=== PATIENT | female | born 1960 | race Caucasian/White ===

== ENCOUNTER 2019-11-09 14:12 | Emergency (ER) | payer OTHER, SELFPAY ==
--- NOTE | ~2019-11-09 | XR_ITS ---
EXAMINATION: XR chest 2V EXAM DATE: 11/09/2019 15:18 INDICATION: Epigastric chest pain. TECHNIQUE: Frontal and lateral projections of the chest obtained and reviewed. Comparison is made to prior examination from 11/05/2017. FINDINGS: The lungs are clear. There are no pleural effusions. The cardiomediastinal silhouette is within normal limits. There is no pneumothorax suspected. The bones and soft tissues are unremarkab le. There is no significant interval change. There are cholecystectomy clips. IMPRESSION: No acute cardiopulmonary findings. Reviewed, dictated and finalized at location A.
[2019-11-09 14:25] VITALS: BP 149/91; PULSE 69; RESP 16; TEMP 36.9; O2SAT 97
--- NOTE | 2019-11-09 14:25 | ECG_ITS ---
Measurements Intervals [place] Rate: 70 P: 56 SD: 123 QRS: 55 QRSD: 84 T: 28 QT: 377 QTc: 409 Interpretive Statements SINUS RHYTHM POSSIBLE LEFT ATRIAL ENLARGEMENT BASELINE ARTIFACT- I, II BORDERLINE ECG Electronically Signed On 11-10-2019 14:10:49 CDT by Elder Ayala D.O.
--- NOTE | 2019-11-09 14:58 | ED.CHESTPAIN ---
HPI - Chest Pain General Chief Complaint: Chest Pain Stated Complaint: heartburn Time Seen by Provider: 11/09/19 14:43 History of Present Illness HPI narrative: Patient is a 59-year-old female who presents ER with burning chest pain. Ongoing persistently for 48 hours. Has been taking Rolaids without relief of symptoms. She takes 40 mg of omeprazole daily for the last 5 years. She reports she has been more stressed recently due to COVID-19 but no other changes in medications or diet. Cannot describe any aggravating or alleviating factors. She has no exertional symptoms. No nausea/vomiting/dizziness/diaphoresis. No known history of cardiac disease. Patient reports she has not had an EGD in a couple years and missed her most recent scheduled follow-up. No radiation into her back or shoulders or neck. Related Data Home Medications Medication Instructions Recorded Confirmed Singulair 07/18/19 Zyrtec 07/18/19 fluticasone furoate-vilanterol INHALATION 07/18/19 [Breo Ellipta] pantoprazole 07/18/19 Allergies Allergy/AdvReac Type Severity Reaction Status Date / Time Penicillins Allergy Severe throat Verified 11/05/17 19:04 cephalexin Allergy Intermediate Swelling Verified 07/18/19 11:57 of Lip/Tongue/Throat codeine Allergy Unknown Difficulty Verified 07/18/19 11:57 Breathing levofloxacin Allergy Unknown Difficulty Verified 07/18/19 11:57 Breathing morphine Allergy Unknown Difficulty Verified 07/18/19 11:57 Breathing budesonide [From Symbicort] Allergy Difficulty Verified 07/18/19 11:57 Breathing formoterol [From Symbicort] Allergy Difficulty Verified 07/18/19 11:57 Breathing Review of Systems Review of Systems: All systems reviewed & are unremarkable except as noted in HPI and below Constitutional: Constitutional: Denies chills, Denies fever(s) and Denies weakness ENT: Denies nasal congestion and Denies sore throat Cardiovascular: Cardiovascular: Reports chest pain, Denies rapid heart rate and Denies radiating jaw, neck or arm pain Respiratory: Respiratory: Denies cough, Denies dyspnea and Denies wheezing Gastrointestinal: Gastrointestinal: Denies abdominal pain, Denies bloating, Reports heartburn, Denies nausea and Denies vomiting [facility] Past Medical History Medical History (Updated 11/09/19 @ 16:08 by Darrick Rowley MD) Arthritis Back pain Pre-diabetes Surgical History Surgical History (Updated 07/18/19 @ 13:40 by Vicki Lara) H/O: hysterectomy Hx of appendectomy Hx of cardiac cath Hx of cholecystectomy Social History Social History (Updated 07/18/19 @ 13:40 by Vicki Lara) Smoking packs per day: 0.25 Smoking cigarettes per day: 5.0 Smoking status: Current every day smoker Exam Narrative: Exam Narrative: GENERAL: Well-appearing, well-nourished, and in no acute distress. HEAD: Normocephalic, atraumatic. ENT: Mucous membranes moist. CHEST: Clear to auscultation. No respiratory distress. HEART: Regular rate and rhythm. Normal peripheral pulses. ABDOMEN: Soft, nontender, nondistended. EXTREMITIES: Normal range of motion. No edema. SKIN: Warm, dry, no rash. NEURO: Alert and oriented x3. PSYCH: Normal mood and affect. Course Course Emergency Course: Minimal improvement with GI cocktail. Troponin undetectable. EKG unchanged from 2014. Recommend increasing omeprazole to 40 mg twice a day. Needs follow-up with her PCP. May require outpatient stress test or outpatient EGD. Vital Signs Vital signs: Vital Signs Temperature 98.5 F 11/09/19 14:25 Pulse Rate 69 11/09/19 14:25 Respiratory Rate 16 11/09/19 14:25 Blood Pressure 149/91 H 11/09/19 14:25 Pulse Oximetry 97 11/09/19 14:25 Temperature 98.5 F 11/09/19 14:25 Pulse Rate 69 11/09/19 14:25 Respiratory Rate 16 11/09/19 14:25 Blood Pressure 149/91 H 11/09/19 14:25 Pulse Oximetry 97 11/09/19 14:25 MDM - Chest Pain Lab Data
[2019-11-09] MEDS: BELLADONNA ALK/PHENOB ELIX 10 ML, MAG HYDROX/ALUMINUM HYD/SIMETH 30 ML, LIDOCAINE HCL 2... PO (15:09)
[2019-11-09 15:13] LABS: Basophils Absolute Auto 0.1 K/mm3 (0.0-0.1); Basophils Percent Auto 0.8 % (0.2-1.2); Eosinophils Absolute Auto 0.2 K/mm3 (0-0.3); Eosinophils Percent Auto 2.5 % (0-4.4); Hematocrit 41.6 % (37.0-47.0); Hemoglobin 13.4 g/dL (12.0-15.0); Immature Granulocyte Absolute 0.02 K/mm3 (0.00-0.031); Immature Granulocyte Percent A 0.2 % (0-0.5); Lymphocytes Absolute Auto 3.34 K/mm3 (0.9-3.2); Lymphocytes Percent Auto 40.3 % (18.3-44.2); Mean Corpuscular HGB Conc 32.2 g/dl (32-36); Mean Corpuscular Hemoglobin 28.5 pg (26-34); Mean Corpuscular Volume 88.5 fl (80-100); Mean Platelet Volume 10.3 fl (7.4-10.4); Monocytes Absolute Auto 0.6 K/mm3 (0.1-0.6); Monocytes Percent Auto 7.2 % (2.6-8.5); Neutrophils Absolute Auto 4.1 K/mm3 (1.3-6.7); Platelet Count Result 306 k/mm3 (150-375); Red Cell Distribution Width 13.2 % (11.5-14.5); White Blood Count 8.3 K/mm3 (4.5-10.0)
[2019-11-09 15:27] LABS: Alanine Aminotransferase 19 U/L (4-35); Albumin Level 4.5 g/dL (3.5-5.1); Alkaline Phosphatase 109 U/L (38-126); Aspartate Amino Transferase 31 U/L (14-36); Bilirubin,Total 0.3 mg/dL (0.2-1.3); Blood Urea Nitrogen 16 mg/dL (7-17); Calcium 10.3 mg/dL (8.4-10.2); Carbon Dioxide 30 mmol/L (22-30); Chloride 103 mmol/L (98-107); Estimated Glomerular Filt Rate 57; Glucose 93 mg/dL (65-105); Potassium 3.9 mmol/L (3.4-5.0); Sodium 138 mmol/L (137-145)
[2019-11-09 15:33] LABS: INR 0.9; Prothrombin Time 11.8 Seconds (11.1-14.7)
[2019-11-09 15:34] LABS: Partial Thromboplastin Time 31.9 SECONDS (22.3-36.8)
[2019-11-09 15:38] LABS: Troponin I < 0.012 ng/mL (0.000-0.034)
[2019-11-09 16:20] VITALS: BP 133/64; PULSE 65; RESP 18; O2SAT 97
== END 2019-11-09 16:22 | disposition home or self-care (01) ==
PROVIDERS: Emergency Provider Emergency Medicine; PCP Physician Assistant
DX: R07.89 Other chest pain (principal); K21.9 Gastro-esophageal reflux disease without esophagitis; M19.90 Unspecified osteoarthritis, unspecified site; R73.03 Prediabetes; F17.200 Nicotine dependence, unspecified, uncomplicated; R94.31 Abnormal electrocardiogram [ECG] [EKG]
CPT/HCPCS: 36415; 71046; 80053; 84484; 85025; 85610; 85730; 93005; 99284; A9270

== ENCOUNTER 2020-02-24 00:51 | Outpatient (CLI) | payer OTHER, SELFPAY ==
[2020-02-24 18:42] LABS: SARS-CoV-2 RNA PCR Negative
== END 2020-02-24 00:52 | disposition home or self-care (01) ==
LOC: ANHCOVIDDT 00:52
PROVIDERS: PCP Physician Assistant; Visit Provider Internal Medicine Gastroenterology
DX: Z20.828 Contact with and (suspected) exposure to other viral communicable diseases (principal)
CPT/HCPCS: 87635; C9803; U0003

== ENCOUNTER 2020-02-26 01:51 | Day surgery (SDC) | payer OTHER, SELFPAY ==
[2020-02-18 12:53] VITALS: BMI 26.6
[2020-02-26 08:14] VITALS: BP 143/72; PULSE 64; RESP 18; TEMP 36.6; O2SAT 100
--- NOTE | 2020-02-26 08:23 | WPDANESEPPF ---
Anes - Initial Pre Proc Eval Procedure: Operation Date: 02/26/20 09:00 Proposed Procedures p Colonoscopy - Fernando Aviles MD Date/Time: 02/26/20 08:23 Surgeon: Fernando Aviles MD Pre Op Diagnosis: Abnormal CT Scan Patient Data Age: 59 Gender: F Height: 4 ft 11 in Weight: 61.9 kg Last Vital Signs Temp 97.9 F 02/26/20 08:14 Pulse 64 02/26/20 08:14 Resp 18 02/26/20 08:14 BP 143/72 H 02/26/20 08:14 Pulse Ox 100 02/26/20 08:14 Allergies Allergy/AdvReac Type Severity Reaction Status Date / Time Penicillins Allergy Severe Swelling Verified 02/26/20 08:10 of Lip/Tongue/Throat cephalexin Allergy Intermediate Swelling Verified 02/26/20 08:10 of Lip/Tongue/Throat codeine Allergy Unknown Difficulty Verified 02/26/20 08:10 Breathing levofloxacin Allergy Unknown Difficulty Verified 02/26/20 08:10 Breathing morphine Allergy Unknown Difficulty Verified 02/26/20 08:10 Breathing budesonide [From Symbicort] Allergy Difficulty Verified 02/26/20 08:10 Breathing formoterol [From Symbicort] Allergy Difficulty Verified 02/26/20 08:10 Breathing Home Medications Medication Instructions Recorded Confirmed Type fluticasone furoate-vilanterol 1 ea INHALATION DAILY 07/18/19 02/26/20 History [Breo Ellipta] cetirizine [Zyrtec] 5 mg PO DAILY 02/18/20 02/26/20 History montelukast [Singulair] 5 mg PO DAILY 02/18/20 02/26/20 History pantoprazole 40 mg PO HS 02/18/20 02/26/20 History Patient hx anesthesia problems: none Family hx anesthesia problems: none [facility] Past Medical History Medical History (Updated 11/10/19 @ 00:00 by Cristhian Olivier) Arthritis Back pain Pre-diabetes Surgical History Surgical History (Updated 07/18/19 @ 13:40 by Vicki Lara) H/O: hysterectomy Hx of appendectomy Hx of cardiac cath Hx of cholecystectomy Social History Social History (Updated 07/18/19 @ 13:40 by Vicki Lara) Smoking packs per day: 0.25 Smoking cigarettes per day: 5.0 Smoking status: Current every day smoker Anes - Eval Final PreProcedure Day of Procedure 02/26/20 08:23 Patient weight: normal Heart: regular rate and rhythm Lungs: clear to auscultation Airway: Mallampati scale class II Neurological: alert and oriented Last oral intake: >/= 8 hours ASA classification: II Emergent: no Anesthetic plan: proceed Anesthesia type and monitoring: general GIVS and standard monitoring Informed Consent: The patient's anesthetic plan and its attendant risks and benefits were discussed with the patient/family/POA. Questions were solicited and answers provided to the satisfaction of the patient/family/POA.
[2020-02-26] MEDS: LACTATED RINGERS 1,000 ML 150 ML IV CONT (08:24)
--- NOTE | 2020-02-26 08:39 | WPDGICN ---
Assessment and Plan Assessment and plan (1) Encounter for screening colonoscopy: Code(s): Z12.11 - Encounter for screening for malignant neoplasm of colon Status: Acute Assessment and Plan: Plan is for screening colonoscopy because of her age. This report follow separately. (2) Abnormal CT scan: Code(s): R93.89 - Abnormal findings on diagnostic imaging of other specified body structures Status: Acute Assessment and Plan: Patient is had mild suprapubic discomfort. CT scan raises question of prior diverticulitis. Plan is to evaluate abnormalities on CT scan with colonoscopy. GI Consult Note Consult date/time: 02/26/20 08:39 HPI: Bela Valencia is a 59 year old female seen in evaluation at the request of PABLO Hardy. Patient reports vague lower abdominal pain. She recently underwent a CT scan which raise the question of nonspecific stranding in the mesentery. There is a question of possible sequelae of prior diverticulitis. For this reason patient presents for colonoscopy. She states that her current weight appetite bowel movements are normal. She has no difficulty urinating at this time. Her family history is noncontributory. Patient reports having had severe diverticulitis 5 years ago. She has no residual difficulties at that time. Patient has never had colonoscopy before. Review of Systems Review of Systems: All systems reviewed & are unremarkable except as noted in HPI and below PMFSH Past Medical History Medical History Arthritis Back pain Pre-diabetes Surgical History Surgical History H/O: hysterectomy Hx of appendectomy Hx of cardiac cath Hx of cholecystectomy Social History Social History Smoking packs per day: 0.25 Smoking cigarettes per day: 5.0 Smoking status: Current every day smoker Meds Home Medications and Allergies Home Medications Medication Instructions Recorded Confirmed Type fluticasone furoate-vilanterol 1 ea INHALATION DAILY 07/18/19 02/26/20 History [Breo Ellipta] cetirizine [Zyrtec] 5 mg PO DAILY 02/18/20 02/26/20 History montelukast [Singulair] 5 mg PO DAILY 02/18/20 02/26/20 History pantoprazole 40 mg PO HS 02/18/20 02/26/20 History Allergies Allergy/AdvReac Type Severity Reaction Status Date / Time Penicillins Allergy Severe Swelling Verified 02/26/20 08:10 of Lip/Tongue/Throat cephalexin Allergy Intermediate Swelling Verified 02/26/20 08:10 of Lip/Tongue/Throat codeine Allergy Unknown Difficulty Verified 02/26/20 08:10 Breathing levofloxacin Allergy Unknown Difficulty Verified 02/26/20 08:10 Breathing morphine Allergy Unknown Difficulty Verified 02/26/20 08:10 Breathing budesonide [From Symbicort] Allergy Difficulty Verified 02/26/20 08:10 Breathing formoterol [From Symbicort] Allergy Difficulty Verified 02/26/20 08:10 Breathing Vital Signs Vital Signs - 24 hr 02/26/20 08:14 Temperature 97.9 F Pulse Rate 64 Respiratory Rate 18 Blood Pressure 143/72 H Pulse Oximetry 100 Exam Narrative: Exam Narrative: Physical exam reveals patient to be alert. Vital signs stable. HEENT exam unremarkable. Lungs are clear to auscultation and percussion. Heart is without murmur or extra sounds. Abdominal exam bowel sounds present soft nontender with no hepatosplenomegaly. Digital external rectal exam is normal.
[2020-02-26 09:03] VITALS: BP 130/70; PULSE 61; RESP 30; O2SAT 98
[2020-02-26 09:13] VITALS: BP 120/68; PULSE 61; RESP 25; O2SAT 98
[2020-02-26 09:23] VITALS: BP 140/77; PULSE 61; RESP 25; O2SAT 98
== END 2020-02-26 09:52 | disposition home or self-care (01) ==
PROVIDERS: PCP Physician Assistant; Visit Provider Internal Medicine Gastroenterology
PROC: 0DJD8ZZ Inspection of Lower Intestinal Tract, Via Natural or Artificial Opening Endoscopic (ICD-10-PCS; CPT 45378; principal; 2020-02-26 09:00)
DX: K57.30 Diverticulosis of large intestine without perforation or abscess without bleeding (principal); K64.8 Other hemorrhoids; F17.210 Nicotine dependence, cigarettes, uncomplicated; Z88.0 Allergy status to penicillin; Z79.899 Other long term (current) drug therapy
CPT/HCPCS: 45378; J2704; J7120

== ENCOUNTER 2021-02-25 10:06 | Emergency (ER) | payer OTHER, SELFPAY ==
--- NOTE | ~2021-02-25 | CT_ITS ---
EXAMINATION: CT abdomen pelvis w con INDICATION: Lower abdominal pain TECHNIQUE: Computed tomographic images of the abdomen and pelvis were obtained after the administrati on of 100 cc of Omnipaque 350 intravenous contrast. The dose-length product (DLP) was 354.57 mGy-cm. Automated exposure control and iterative reconstruction technique were employed. COMPARISON: 11/05/2017 FINDINGS: The lung bases are clear. The heart size is normal. The gallbladder is surgically absent. T here is mild enlargement of the common bile duct and central intrahepatic ducts which is likely due t o post cholecystectomy state. Cysts of the liver measure up to 1.3 cm in the left hepatic lobe. The s pleen, pancreas, and adrenal glands are normal. The left kidney is unremarkable. There is a 1.[address] of the right kidney. There is calcified atherosclerosis of the aorta and many of the other arterie s. There is calcified atherosclerosis of the aorta and many of the other arteries. Colonic diverticul osis is present without evidence of diverticulitis. There is unchanged grade 1 anterolisthesis of L5 on S1. IMPRESSION: 1. Diverticulosis without evidence of diverticulitis. Reviewed, dictated and finalized at location A.
[2021-02-25 10:29] VITALS: BP 150/77; PULSE 71; RESP 18; TEMP 36.5; O2SAT 99
[2021-02-25 10:42] LABS: Basophils Absolute Auto 0.1 K/mm3 (0.0-0.1); Basophils Percent Auto 0.8 % (0.2-1.2); Eosinophils Absolute Auto 0.3 K/mm3 (0-0.3); Eosinophils Percent Auto 3.4 % (0-4.4); Hematocrit 43.5 % (37.0-47.0); Immature Granulocyte Absolute 0.02 K/mm3 (0.00-0.031); Immature Granulocyte Percent A 0.3 % (0-0.5); Lymphocytes Absolute Auto 2.29 K/mm3 (0.9-3.2); Lymphocytes Percent Auto 30.3 % (18.3-44.2); Mean Corpuscular HGB Conc 32.2 g/dl (32-36); Mean Corpuscular Hemoglobin 28.2 pg (26-34); Mean Corpuscular Volume 87.5 fl (80-100); Mean Platelet Volume 9.7 fl (7.4-10.4); Monocytes Absolute Auto 0.5 K/mm3 (0.1-0.6); Monocytes Percent Auto 6.5 % (2.6-8.5); Neutrophils Absolute Auto 4.4 K/mm3 (1.3-6.7); Neutrophils Percent Auto 58.7 % (45.5-73.1); Platelet Count Result 273 k/mm3 (150-375); Red Blood Count 4.97 M/mm3 (4.2-5.4); Red Cell Distribution Width 13.6 % (11.5-14.5); White Blood Count 7.6 K/mm3 (4.5-10.0)
[2021-02-25 10:50] LABS: Add Urine Microscopic? YES; Appearance Urine Clear (Clear); Bilirubin Urine Negative (Negative); Blood Urine Negative (Negative); Color Urine Colorless (Yellow); Glucose Urine UA Negative (Negative); Ketones Urine Negative (Negative); Leukocyte Esterase Ur 1+ LEU/UL (Negative); Nitrate Urine Negative (Negative); Protein Urine Negative (Negative); RBC Urine 0-2 /hpf (0-2); Urobilinogen Urine Negative mg/dL (<2.0)
[2021-02-25 10:51] LABS: Specific Grav Ur 1.002 (1.001-1.035)
[2021-02-25 10:53] LABS: Alanine Aminotransferase 18 U/L (4-35); Albumin Level 4.5 g/dL (3.5-5.1); Alkaline Phosphatase 114 U/L (38-126); Anion Gap 5 mmol/L (8-16); Aspartate Amino Transferase 31 U/L (14-36); Bilirubin,Total 0.4 mg/dL (0.2-1.3); Blood Urea Nitrogen 13 mg/dL (7-17); Calcium 9.9 mg/dL (8.4-10.2); Carbon Dioxide 27 mmol/L (22-30); Chloride 108 mmol/L (98-107); Estimated Glomerular Filt Rate 57; Glucose 91 mg/dL (65-110); Lipase 153 U/L (23-300); Potassium 4.7 mmol/L (3.4-5.0); Sodium 140 mmol/L (137-145)
[2021-02-25 11:33] VITALS: BP 150/96; PULSE 66; RESP 17; O2SAT 100
[2021-02-25] MEDS: LACTATED RINGERS 1,000 ML 999 ML IV CONT (12:15)
[2021-02-25] MEDS: ONDANSETRON INJ 4 MG/2 ML VIAL IV PUSH (12:16)
--- NOTE | 2021-02-25 12:22 | ED.ABDPAIN ---
HPI - Abdominal Pain General Chief Complaint: Abdominal Pain Stated Complaint: abd pain Time Seen by Provider: 02/25/21 11:53 History of Present Illness HPI narrative: Patient reports abdominal pain for the last 2 days getting worse. Pain is initially on the left lower abdomen now is radiating over to the right lower abdomen. Pain is achy, constant, no clear aggravating or alleviating factors. Shortness mild nausea but no vomiting. Reports diarrhea over the past couple days but has resolved denies any constipation she denies any urinary symptoms she denies any fevers. Reports history of diverticulitis and symptoms feel similar to her prior episode. Related Data Home Medications Medication Instructions Recorded Confirmed fluticasone furoate-vilanterol 1 ea INHALATION DAILY 07/18/19 02/26/20 [Breo Ellipta] cetirizine [Zyrtec] 5 mg PO DAILY 02/18/20 02/26/20 montelukast [Singulair] 5 mg PO DAILY 02/18/20 02/26/20 pantoprazole 40 mg PO HS 02/18/20 02/26/20 Allergies Allergy/AdvReac Type Severity Reaction Status Date / Time Penicillins Allergy Severe Swelling Verified 02/26/20 08:10 of Lip/Tongue/Throat cephalexin Allergy Intermediate Swelling Verified 02/26/20 08:10 of Lip/Tongue/Throat codeine Allergy Unknown Difficulty Verified 02/26/20 08:10 Breathing levofloxacin Allergy Unknown Difficulty Verified 02/26/20 08:10 Breathing morphine Allergy Unknown Difficulty Verified 02/26/20 08:10 Breathing budesonide [From Symbicort] Allergy Difficulty Verified 02/26/20 08:10 Breathing formoterol [From Symbicort] Allergy Difficulty Verified 02/26/20 08:10 Breathing Review of Systems Review of Systems: CONSTITUTIONAL: Denies fever, chills, or sweats. EYES: Denies visual changes, redness, or discharge. ENT: Denies rhinorrhea, congestion, sore throat, or otalgia. CARDIOVASCULAR: Denies chest pain, palpitations, or edema. RESPIRATORY: Denies cough or dyspnea. GASTROINTESTINAL: Denies vomiting, or diarrhea. GENITOURINARY: Denies dysuria or hematuria. SKIN: Denies rash or itching. MUSCULOSKELETAL: Denies back pain, joint pain, or myalgia. NEUROLOGIC: Denies headache, numbness, dizziness, or weakness. PSYCHIATRIC: Denies anxiety or depression. All systems reviewed & are unremarkable except as noted in HPI and below PMFSH Past Medical History Medical History (Updated 02/25/21 @ 13:35 by Rodney Vilchis MD) Arthritis Back pain Pre-diabetes Surgical History Surgical History H/O: hysterectomy Hx of appendectomy Hx of cardiac cath Hx of cholecystectomy Social History Social History Smoking packs per day: 0.25 Smoking cigarettes per day: 5.0 Smoking status: Current every day smoker Exam Narrative: GENERAL: Well-appearing, well-nourished, and in no acute distress. HEAD: Normocephalic, atraumatic. EYES: PERRLA and EOMI. ENT: Nares clear, no rhinorrhea or epistaxis. Mucous membranes moist. NECK: Supple. No masses. No JVD ABDOMEN: Mild tenderness in the bilateral lower abdomen soft, nondistended, normal active bowel sounds. EXTREMITIES: Normal range of motion. No edema. SKIN: Warm, dry, no rash. NEURO: No focal deficits. Alert and oriented x3. PSYCH: Normal mood and affect. Course Reevaluation(s) Reevaluation #1: Reports feeling improved labs imaging plan reviewed with patient. Patient declines additional supportive therapies Date: 02/25/21 Time: 13:18 Vital Signs Vital signs: Vital Signs Temperature 36.5 C 02/25/21 10:29 Pulse Rate 71 02/25/21 10:29 Respiratory Rate 18 02/25/21 10:29 Blood Pressure 150/77 H 02/25/21 10:29 Pulse Oximetry 99 02/25/21 10:29 Temperature 36.5 C 02/25/21 10:29 Pulse Rate 72 02/25/21 13:57 Respiratory Rate 16 02/25/21 13:57 Blood Pressure 151/79 H 02/25/21 13:57 Pulse Oximetry 100 0
[2021-02-25 13:57] VITALS: BP 151/79; PULSE 72; RESP 16; O2SAT 100
== END 2021-02-25 13:58 | disposition home or self-care (01) ==
PROVIDERS: Emergency Medicine; Emergency Provider Emergency Medicine; PCP Physician Assistant
DX: R10.32 Left lower quadrant pain (principal); R10.31 Right lower quadrant pain; R11.0 Nausea; M19.90 Unspecified osteoarthritis, unspecified site; R73.03 Prediabetes; F17.210 Nicotine dependence, cigarettes, uncomplicated; K57.90 Diverticulosis of intestine, part unspecified, without perforation or abscess without bleeding
CPT/HCPCS: 36415; 74177; 80053; 81001; 83690; 85025; 96361; 96374; 99284; J2405; J7120; Q9967

== ENCOUNTER 2025-07-11 11:23 | Emergency (ER) | payer MEDICARE, SELFPAY ==
--- NOTE | ~2025-07-11 | CT_ITS ---
CT HEAD NON-CONTRAST Clinical History: blurry vision - resolved Comparison: None Technique: Unenhanced axial images skull base to vertex Coronal, sagittal reformats CT images acquired with automatic exposure control for dose reduction DLP: 757 mGy-cm Findings: Sulci, ventricles: Unremarkable. No intracerebral hemorrhage. No evidence acute territorial infarct. No mass effect, midline shift. Bony calvarium intact. Visualized paranasal sinuses: Clear. Mastoid air cells: Clear. IMPRESSION: 1. No acute intracranial findings. Reviewed, dictated and finalized at location R. AL ASSISTANT
--- NOTE | ~2025-07-11 | XR_ITS ---
Examination: XR chest 1V portable Clinical History: blurry vision Comparison: 11/09/2019 Technique: Portable AP Findings: Heart size normal. Lungs clear. Except minimal bibasilar atelectasis and/or scarring. No acute bony abnormality. IMPRESSION: 1. No acute cardiopulmonary findings given portable technique. Reviewed, dictated and finalized at location R. TINGS RESTORER
--- NOTE | ~2025-07-11 | CT_ITS ---
CTA NECK, CTA HEAD Clinical History: visual change Comparison: Noncontrast CT head today TECHNIQUE: Helical images thoracic inlet to vertex IV contrast information not listed in PACS Coronal, sagittal reformats. Multi planar MIPS CT images acquired with automatic exposure control for dose reduction DLP: 997 mGy-cm Findings: NASCET Criteria utilized CTA NECK Aortic arch: No aneurysm or dissection. Great vessel origins: No stenosis. CCAs: No stenosis. Cervical ICAs: No stenosis. Vertebral Arteries: Patent. Lung Apices: Clear. Thyroid: Unremarkable. Nodes: No enlarged nodes. Bones: No acute bony abnormality. CTA HEAD: Aneurysms: None. Intracranial ICAs: Patent, unremarkable. ACAs and their distal branches: Patent, unremarkable. A-Comm: Identified. Patent, unremarkable. MCAs and their distal branches: Patent, unremarkable. Basilar artery: Patent, unremarkable. rn triage and their distal branches: Patent, unremarkable. P-Comms: Neither side present. IMPRESSION: CTA NECK: 1. No acute findings. CTA HEAD: 1. No acute findings. Reviewed, dictated and finalized at location R. IONARY COORDINATOR
--- OUTSIDE RECORDS SUMMARY | 2025-07-11 11:28 | XMS_ITS | Clinical Summary ---
Author Organization [facility] [place] [facility] [address] Address [address] [place] [address] Care Team Providers Care Gravity Meter Observer Name Role Phone Ora Owens MD Primary Care Provid er Pj Shanks MD Unavailable [phone] Allergies Active Allergy Reactions Criticality Noted Date Comments Budesonide-Formoterol Chest tightness Medium 9 Symbicort Inhaler Codeine Stomach upset,Anaphylaxis,Naus ea only High 05/07/2009 Abd. pain Formoterol Unknown 04/07/2019 Cephalexin Anaphylaxis High 11/25/2017 Levofloxacin Other (See comments) High 11/25/2017 Respiratory Distress Nitrofurantoin Unknown 11/06/2023 Morphine Shortness of breath High 11/25/2017 Respiratory distress Penicillin G Anaphylaxis High 11/25/2017 Medications fluticasone furoate-vilante rol (BREO ELLIPTA) 200-25 mcg/dose diskus inhaler Breo Ellipta 200 mcg-25 mcg/dose powder for inhalation every evening Active albuterol HFA (PROVENTIL HFA,VENTOLIN HFA,PROAIR HFA) 90 mcg/actuation inhalerIndicati ons:Acute Asthma Attack Inhale 2 puffs every 6 (six) hours as needed for wheezing or shortness of breath Active multivitamin tabletIndicatio ns:Vitamin Deficiency Prevention Take 1 tablet by mouth every other day Active pantoprazole DR (PROTONIX) 40 mg EC tabletIndicatio ns:acid reflux Take 1 tablet (40 mg total) by mouth every morning 90 tablet 1 4 Active cyclobenzaprine (FLEXERIL) 5 mg tablet Take 1 tablet (5 mg total) by mouth 3 (three) times a day as needed for muscle spasms 4 Active Active Problems Problem Noted Date Diagnosed Date COPD, moderate 11/29/2023 Assessment & Plan (11/29/2023 2:27 PM CDT): Symptoms controlled with breo ellipta, continue BMI 27.0-27.9,adult 11/06/2023 Assessment & Plan (11/29/2023 12:45 PM CDT): BMI Follow-up includes: education provided. Assessment & Plan (11/06/2023 11:24 AM CDT): BMI Follow-up includes: education provided. Essential hypertension 11/06/2023 Assessment & Plan (11/29/2023 2:15 PM CDT): Systolic elevated today and at last visit. Reports home BPs 130-140s/80s and reports 118/68 at pulmonology appt, but has not been monitoring at home recently Not on medication Never took lisinopril due to concern about side effects Losartan had side effects. Discussed goal BP less than 140/90 Discussed risks of untreated HTN to include heart attack, stroke, heart disease, chronic kidney disease Congratulated on smoking cessation. Encouraged continued lifestyle interventions for HTN and HLD. Continue to monitor BP at home and follow up if consistently above goal of less than 140/90 Assessment & Plan (11/06/2023 1:31 PM CDT): Systolic elevated today in office. Reports home BPs 130-140s/80s and reports 118/68 at pulmonology appt. Not on medication Never took lisinopril due to concern about side effects Losartan had side effects. Discussed goal BP less than 140/90 Discussed risks of untreated HTN to include heart attack, stroke, heart disease, chronic kidney disease Congratulated on smoking cessation. Encouraged continued lifestyle interventions for HTN and HLD. Continue to monitor BP at home and follow up if consistently above goal Arthritis of carpometacarpal (CMC) joint of both thumbs 03/11/2019 Overview (03/11/2019): Added automatically from request for surgery [id number] De Quervain's syndrome (tenosynovitis) 9 Overview (03/11/2019): Added automatically from request for surgery [id number] Anterior chest wall pain 03/10/2019 Asthma 03/10/2019 Overview (03/10/2019): Overview: adult onset More in cold temps Degeneration of cervical intervertebral disc Degeneration of thoracic intervertebral disc Dysfunction of eustachian tube 03/10/2019 Neck pain 03/10/2019 Prediabetes 03/10/2019 Overview (03/10/2019): Overview: a1c 5.7% 10/2013 Dr Leon (last PCP) Thoracic back pain 03/10/2019 Diverticulitis 08/22/2018 HLD (hyperlipidemia) 02/04/2014 Overview (03/10/2019): Overview: 10y ASCVD risk 3.6% Assessment & Plan (11/06/2023 1:27 PM CDT): Elevated, LDL not at goal, but improving on review of last three lipid panels with dietary changes. Statin was previously prescribed but she never took it. 10 year ASCVD risk at 6.4%, borderline. Congratulated on smoking cessation and encouraged continued cessation. Encouraged continued dietary changes and will repeat lipid panel in 6 months at annual physical. Former cigarette smoker 01/22/2014 Overview (03/10/2019): Overview: Quit Apr 2014 Assessment & Plan (11/06/2023 1:21 PM CDT): Quit 08/28/2023. History of 1 pack per week for 40 years. Congratulated on smoking cessation and encouraged continued cessation. GERD (gastroesophageal reflux disease) 4 Overview (03/10/2019): Overview: Dr Holguin Assessment & Plan (11/06/2023 1:23 PM CDT): Symptoms controlled with pantoprazole 40 mg daily. Discussed risks of PPI medications. Long-term use of proton pump inhibitors (PPIs) can cause low calcium, low vitamin B12, low magnesium, diarrhea, osteoporosis/weakening of bones, kidney problems and increased risk of infection. Monitoring labs next appt. Continue multivitamin daily. Bone density screening with DEXA at age 65; congratulated on smoking cessation and encouraged regular weight bearing exercise for bone density. History of diverticulitis of colon 01/22/2014 Spondylolisthesis at L5-S1 level 01/22/2014 Overview (03/10/2019): Overview: Grade 2 anterolisthesis of L5 on S1 with multilevel lumbar disc disease, worst and moderate at L5-S1 Resolved Problems Problem Noted Date Diagnosed Date Resolved Date Tobacco user 03/10/2019 11/06/2023 Immunizations Immunization Administration Dates Next Due DTaP, Unspecified 11/09/2014 Flucelvax Influenza Quad MDI 07/28/2013 Influenza, Quadrivalent, Rec ombinant, Egg Free, Preservative Free, Intramuscular 04/13/2023,04/15/2022,04/29/2021 Influenza, Quadrivalent, Spl it, Intramuscular 04/25/2019 Influenza, Trivalent, IM (MDV) 04/15/2022,2020 Influenza, Trivalent, Preser vative Free, Intramuscular 04/21/2016,04/14/2015 Influenza, Unspecified 04/12/2023,2016,05/19/2014,03/15 Pneumococcal Polysaccharide PPV23 01/22/2014 Pneumococcal, Unspecified 04/21/2014 Tdap 09/02/2014 Surgical History Surgery Date Site/Laterality Comments CHOLECYSTECTOMY 07/15/1993 - 07/14/1994 CARPAL TUNNEL RELEASE right-2014, left 2003 Bilateral and ganglion cysts removed at same time OOPHERECTOMY 07/15/1986 - 07/14/1987 Left DE QUERVAIN'S RELEASE ~2017 Left HYSTERECTOMY 07/15/1986 - 07/14/1987 UPPER GASTROINTESTINAL ENDOSCOPY TUBAL LIGATION 1981 Medical History Medical History Date Comments Headache GERD (gastroesophageal reflux disease) Gastritis Asthma Smoker PONV (postoperative nausea and vomiting) only times one occurance, does not recall with which surgery, states is relieved with IV zofran Motion sickness Hyperlipidemia Pneumonia 06/2018 Arthritis Hypertension 2022 Family History Medical History Relation Name Comments Arthritis Brother Arthritis Father Joey Cancer Father Joey Stroke Maternal Grandfather Gregorio Arthritis Mother Em Cerebral aneurysm Mother Em Depression Mother Em Heart attack Mother Em Heart disease Mother Em Hypertension Mother Em Transient ischemic attack Mother Em Relation Name Status Comments Brother Father Joey (Age 68) cancer Maternal Grandfather Gregorio Mother Em (Age 75) [id number], de ceased from cerebral aneurysm Social History Tobacco Use Types Packs/Day Years Used Date Smoking Tobacco: Former Cigarettes Q uit: 08/28/2023 Smokeless Tobacco: Never Tobacco Cessation:Counseling Given: Not Answered Comments:Few cigarettes/ week Alcohol Use Standard Drinks/Week Comments Not Currently 0 (1 standard drink = 0.6 oz pur e alcohol) PHQ-2 Answer Date Recorded PHQ-2 Total Score 0 11/29/2023 PHQ-9 Answer Date Recorded PHQ-9 Total Score 3 11/06/2023 Comments No Sex and Gender Information Value Date Recorded Sex Assigned at Not on file Legal Sex Female 2:09 PM CDT Gender Identity Not on file Sexual Orientation Not on file Last Filed Vital Signs Vital Sign Reading Time Taken Comments Blood Pressure 140/82 11/29/2023 12:43 PM CDT Pulse 84 11/29/2023 12:43 PM CDT Temperature 36.2 C (97.2 F) 03/25/2019 1:15 PM CDT Respiratory Rate 14 03/25/2019 2:00 PM CDT Oxygen Saturation 95% 11/29/2023 12: 43 PM CDT Inhaled Oxygen Concentration - - Weight 62.1 kg (136 lb 12.8 oz) 024 12:43 PM CDT Height 149.9 cm (4' 11.02) 11/29/2023 12:43 PM CDT Body Mass Index 27.62 11/29/2023 12:43 PM CDT Plan of Treatment Health Maintenance Due Date Last Done Comments Fall Risk Assessment 1960 Hepatitis C Screening 1960 Osteoporosis Screening-Bone Density Scan 1960 Hepatitis B Screening 1978 Zoster Vaccine (1 of 2) 2010 Pneumococcal vaccine 65+ (2 of 2 - PCV) 04/21/2015 04/21/2014, 01/22/2014 DTaP/Tdap/Td Vaccine (3 - Td or Tdap) 11/09/2024 11/09/2014, 09/02/2014 Depression Screening 11/28/2024 11/29/2023, 11/06/2023, 11/06/2023 Breast Cancer Screening-Mammogram 02/18/2025 02/19/2024, 02/19/2024, 10/09/2021, Additional history exists Covid-19 Vaccine (2 - 2024-2 6 season) 2025 03/25/2021 Influenza Vaccine (#1) 2025 , 04/12/2023, 04/15/2022, Additional history exists Well Visit 65+ 2025 Colon Cancer Screening-Colonoscopy 11/20/2027 11/19/2017 Colon Cancer Screening-CT Colonography Discontinued 11/19/2017 Colon Cancer Screening-DNA Stool Discontinued 11/20/19 18 Colon Cancer Screening-FIT Discontinued 11/19/2017 Colon Cancer Screening-Sigmoidoscopy Discontinued 11/19/2017 Medical Devices Implanted Type Area Water Jet Operator Device Identifier Shelf Expiration Date Model / Serial / Lot [employer] [id number]-[id number] Internalbrace Kit Hand Wrist Set Implant Ligament Augmentation - [id number] Implanted:Qty: 1 on 03/25/2019 by Andrew Roldan MD at [facility] Right: Hand [employer] [id number] 01/12/2024 [id number]-[id number] / / [id number] Procedures Procedure Name Priority Date/Time Associated Diagnosis Comments COLONOSCOPY Routine 11/19/2017 from Last 3 Months or Most Recently Relevant to Health Maintenance Results * COLONOSCOPY (11/19/2017) Scribed Colonoscopy Normal us Historical Provider MD HEALTH MAINTENANCE Final Result from Last 3 Months or Most Recently Relevant to Health Maintenance Insurance [facility] MEDICARE GOLD [facility] CHOICE PLUS [facility]ALTH [facility] HMO/PPO Address: [address] [address] [place] [address] [employer] MED[employer]ARE GOLD Care Teams Gravity Meter Observer Relationship Specialty Start Date End Date Ora Owens MD [address] [place] [address] PCP - General Family Medicine 11/06/23 Pj Shanks MD [address] [place] [address] Referring Physician Internal Medicine 11/06/23
--- OUTSIDE RECORDS SUMMARY | 2025-07-11 11:28 | XMS_ITS | Clinical Summary ---
Author Organization [facility] Address [address] [place] [address] Attn: Epic Prelude ADT JODIE SCRUGGS [id number] Care Team Providers Care Tube Balancer Name Role Phone Blas ESPINO MD, Joey Matamoros Primary Care Prov ider Allergies Active Allergy Reactions Criticality Noted Date Comments Budesonide-Formoterol Other (See Comments) Medium 02/13 Symbicort Inhaler Cephalexin Anaphylaxis,Other (See Comments) High 05/07/2009 Tightness in chest Codeine Abdominal Pain,Anaphylaxis,[place] and Vomiting High 05/07/2009 Abd. pain Abd. pain Formoterol Unknown 04/07/2019 Levofloxacin Anaphylaxis,Other (See Comments) High 11/13/2013 Respiratory Distress Asthma attack Morphine Shortness of Breath/Wheezing High 08/10/2014 Respiratory distress Asthma attack Nitrofurantoin Monohyd/M-Cryst Other (See Comments) 09/19/2021 Pt is not sure what this medication caused, just know she is allergic to it Penicillins Anaphylaxis High 10/19/2011 Medications albuterol sulfate 90 mcg/Actuation inhaler Take 2 Puffs by inhalation every 6 hours as needed for Shortness of Breath. 18 Gram 11 2 Active multivitamin (DAILY-DON) tablet Take 1 Tablet by mouth every other day. 4 Active triamcinolone-mup irocin-miconazole 0.05%-1%-2% topical compound Apply to affected area daily. 12 Gram 1 4 Active ipratropium-albut Kaycee (DUONEB) 0.5 mg-3 mg(2.5 mg base)/3 mL Solution for Nebulization Take 3 mL by inhalation every 6 hours as needed for Shortness of Breath. 360 mL 11 4 Active pantoprazole (Protonix) 40 mg Tablet, Delayed Release (E.C.) Take 1 Tablet (40 mg) by mouth 2 times daily. 200 Tablet 1 5 Active fluticasone furoate-vilantero L (BREO ELLIPTA) 100-25 mcg/dose Disk with DeviceIndications :Moderate persistent asthma without complication Inhale 1 puff by mouth once daily 60 Each 11 5 Active Active Problems Problem Noted Date Diagnosed Date COPD, moderate 11/29/2023 Overview (09/22/2024): Last Assessment & Plan: Symptoms controlled with breo ellipta, continue History of asthma 09/05/2023 Arthritis of carpometacarpal (CMC) joint of both thumbs 03/11/2019 Overview (08/10/2021): Added automatically from request for surgery [id number] De Quervain's syndrome (tenosynovitis) 9 Overview (08/10/2021): Added automatically from request for surgery [id number] Anterior chest wall pain 03/10/2019 Asthma 03/10/2019 Overview (08/10/2021): Overview: adult onset More in cold temps adult onset More in cold temps Degeneration of thoracic intervertebral disc Dysfunction of eustachian tube 03/10/2019 Neck pain 03/10/2019 Prediabetes 03/10/2019 Overview (08/10/2021): Overview: a1c 5.7% 10/2013 Dr Leon (last PCP) a1c 5.7% 10/2013 Dr Leon (last PCP) Thoracic back pain 03/10/2019 Tobacco user 03/10/2019 Diverticulitis 08/22/2018 Diverticular disease 08/04/2015 Family history of heart disease 08/04/2015 Personal history of nicotine dependence 08/04/19 16 Left ventricular hypertrophy 08/04/2015 Osteoarthritis 08/04/2015 Snoring 08/04/2015 HLD (hyperlipidemia) 02/04/2014 Overview (08/10/2021): Overview: 10y ASCVD risk 3.6% 10y ASCVD risk 3.6% Former smoker 01/22/2014 Overview (08/10/2021): Overview: Quit Apr 2014 Quit Apr 2014 GERD (gastroesophageal reflux disease) 4 Overview (08/10/2021): Overview: Dr Holguin Dr Holguin Spondylolisthesis at L5-S1 level 01/22/2014 Overview (08/10/2021): Overview: Grade 2 anterolisthesis of L5 on S1 with multilevel lumbar disc disease, worst and moderate at L5-S1 Grade 2 anterolisthesis of L5 on S1 with multilevel lumbar disc disease, worst and moderate at L5-S1 Resolved Problems Problem Noted Date Diagnosed Date Resolved Date HTN (hypertension), benign 09/04/2023 0 01/13/2024 Aortic atherosclerosis 09/21/202109/04 Overview (09/21/2021): CTA Head and Neck; 08-26-21 Encounters Date Type Department Care Team Description 06/15/2025 External Device Data [facility] ABSTRACTION Provider, Abstract 06/15/2025 External Device Data [facility] ABSTRACTION Provider, Abstract 04/20/2025 External Device Data [facility] ABSTRACTION Provider, Abstract from Last 3 Months Immunizations Immunization Administration Dates Next Due (ADACEL/BOOSTRIX)(10 YR UP) TDAP VACCINE, 0.5ML, IM 09/02/2014 (PFIZER)(12 YR UP) COVID-19 VACCINE - EMERGENCY USE AUTHORIZATION, MRNA, [id number](PF) 30 MCG/0.3 ML IM SUSP 03/25/2021 (PNEUMOVAX 23)(50 YRS UP) PN EUMOCOCCAL POLYSACCHARIDE (PPV23) 0.5 ML, IM 01/22/2014 DTaP, Unspecified Formulation 11/09/2014 INFLUENZA VACCINE QUADRIVALE NT 6 MOS UP IM 04/25/2019 INFLUENZA VACCINE QUADRIVALE NT RECOMB 18 YR UP PF IM 04/13/2023,04/15/2022,04/29/2021 Influenza Seasonal Unspecifi ed Formulation IM 04/26/2024,04/15/2022,04/15/2021 Influenza Seasonal Unspecifi ed Formulation PF IM 04/21/2016,04/14/2015 Influenza Vaccine 18+ C.derived Pf Im 07/28/2013 Influenza, Unspecified Formulation 04/12,04/29/2017,05/19/2014,03/15 Pneumococcal vaccine, unspec ified formulation 04/21/2014 Family History Medical History Relation Name Comments Esophageal Cancer Father Joey Depression Mother Em Heart Disease Mother Em Hypertension Mother Em Stroke Mother Em Colon Cancer Neg Hx Relation Name Status Comments Father Joey Mother Em Social History Tobacco Use Types Packs/Day Years Used Date Smoking Tobacco: Some Days Cigarettes 1 30 Started: 08/25/1991; Last attempted to quit: 08/25/2021 Smokeless Tobacco: Never Tobacco Cessation:Ready to Q uit: Not Asked; Counseling Given: Not Answered Alcohol Use Standard Drinks/Week Comments No 0 (1 standard drink = 0.6 oz pur e alcohol) Feeling Safe Answer Date Recorded Are you in a relationship wi th someone who hurts you emotionally and/or physically? 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 Gender Identity Not on file Sexual Orientation Not on file Last Filed Vital Signs Vital Sign Reading Time Taken Comments Blood Pressure 130/80 11/19/2024 11:03 AM CDT Pulse 81 11/19/2024 11:03 AM CDT Temperature 36.9 C (98.5 F) 11/19/2024 11:03 AM CDT Respiratory Rate 16 11/19/2024 11:03 AM CDT Oxygen Saturation 95% 11/19/2024 11:03 AM CDT Inhaled Oxygen Concentration - - Weight 63.5 kg (140 lb) 11/19/2024 11:03 AM CDT Height 149.9 cm (4' 11) 11/17/2024 10:24 AM CDT Body Mass Index 28.28 11/17/2024 10:24 AM CDT Plan of Treatment Health Maintenance Due Date Last Done Comments FIT/ DNA Q 3 YEARS (AUTO ORDER) 1978 FIT/FOBT Q 1 YEAR (AUTO ORDER) 1978 FIT-DNA Q 3 years 2005 FIT/FOBT Q 1 year 2005 Flex Sig/CT Colonography Q 5 years 2005 RSV VACCINE (60+ or ) (1 - Risk 50-74 years 1-dose series) 2010 ZOSTER VACCINE (1 of 2) 2010 PNEUMOCOCCAL VACCINE 50+ YEA RS (2 of 2 - PCV) 04/21/2015 04/21/2014, 01/22/2014 FLEX SIG/CT COLONOGRAPHY Q 5 YEARS (AUTO ORDER) 11/19/2022 11/19/2017, 11/19/2017 DTAP/TDAP/TD VACCINES (3 - T d or Tdap) 11/09/2024 11/09/2014, 09/02/2014 INFLUENZA VACCINE (#1) 2025 , 04/13/2023, 04/15/2022, Additional history exists BREAST CANCER SCREENING 02/18/2025 02/19/20 24, 10/09/2021, 10/09/2021, Additional history exists COVID-19 Vaccine (2 - 2024-2 6 season) 2025 03/25/2021 OSTEOPOROSIS SCREENING 2025 Lung Cancer Screening 05/06/2025 05/06/2024 Pre-Diabetes and Diabetes Screening 08/14/2027 08/14/2024 COLORECTAL CANCER SCREENING (AUTO ORDER) 02/03/2034 02/04/2024, 02/04/2024, 02/26/2020, Additional history exists COLORECTAL SCREENING 02/03/2034 02/04/2024, 02/04/2024, 02/26/2020, Additional history exists Colorectal Cancer Screening (AUTO ORDER) 02/03/2034 Colorectal Cancer Screening 02/03/2034 [place] Preventative Visit/Annual Wellness Visit Completed 08/14/2024 Procedures Procedure Name Priority Date/Time Associated Diagnosis Comments HEMOGLOBIN A1C Routine 08/14/2024 11:32 AM INTEGRATED CIRCUITS INSPECTOR Screening for diabetes mellitus CT LUNG SCREENING (LDCT BASELINE OR ANNUAL) Routine 05/06/2024 11:33 AM CDT History of nicotine dependence MAMMO 3D LEANDRA SCREEN BILAT W OR WO CAD Routine 02/19/2024 10:23 AM CDT Encounter for screening for malignant neoplasm of breast, unspecified screening modality Encounter for screening mammogram for malignant neoplasm of breast COLONOSCOPY REPORT 02/04/2024 12 :57 PM CDT from Last 3 Months or Most Recently Relevant to Health Maintenance Results * (ABNORMAL) HEMOGLOBIN A1C (08/14/2024 11:32 AM INTEGRATED CIRCUITS INSPECTOR) HEMOGLOBIN A1C 5.8(H) <5.7 % of total Hgb WeditBrandon Morrison Comment: For someone without known diabetes, a hemoglobin A1c value between 5.7% and 6.4% is consistent with prediabetes and should be confirmed with a follow-up test. For someone with known diabetes, a value <7% indicates that their diabetes is well controlled. A1c targets should be individualized based on duration of diabetes, age, comorbid conditions, and other considerations. This assay result is consistent with an increased risk of diabetes. Currently, no consensus exists regarding use of hemoglobin A1c for diagnosis of diabetes for children. ESTIMATED AVERAGE GLUCOSE (MG/DL) 120 mg/dL Taposé Loretta Morrison ESTIMATED AVERAGE GLUCOSE (MMOL/L) 6.6 mmol/L WeditBrandon Morrison Comment: Test Performed at: [email or web address] [address] [place] [address] Srinivas Sims Blood 08/14/2024 11:3 2 AM INTEGRATED CIRCUITS INSPECTOR 08/14/2024 3:00 PM INTEGRATED CIRCUITS INSPECTOR us Ирина Huynh MD CHEMISTRY ORDERABLES Final Result [facility] [phone] [facility] [address] [place] [address] * CT LUNG SCREENING (LDCT BASELINE OR ANNUAL) (05/06/2024 11:33 AM CDT) Anatomical Region Laterality Modality Chest Computed Tomogra phy 05/06/2024 11:2 2 AM CDT Impressions 05/11/2024 6:12 PM CDT IMPRESSION: 1. Lung-RADS Category 2: Benign. 2. Mild emphysematous changes. 3. Gastroesophageal reflux. RECOMMENDATIONS: 1. Continue annual screening with LDCT in 12 months. DICTATION LOCATION: Location [address] [place] [address] Narrative 05/11/2024 6:[address] LUNG SCREENING (LDCT BASELINE OR ANNUAL) 05/06/2024 11:33 AM INDICATION: Lung cancer screening, >= 20 pack-year smoking history (Age >= 50y). TECHNIQUE: Axial CT images were obtained though the chest without IV contrast using a low-dose technique. Images were also reviewed using CAD software. CTDlvol of 1.2 mGy and DLP of 39 mGy-cm. The examination was performed with the adjustment of mA according to the patient size and/or the use of Iterative reconstruction technique. LIMITATIONS: Low-dose, noncontrast technique limits evaluation of the solid viscera and mediastinum. COMPARISON: CT chest 03/12/2022. FINDINGS: LUNGS: Scattered small pulmonary nodules are identified. Refer to the [facility] image folder for locations of the nodules. An example nodule is present within the left upper lobe on image 77 measuring 2 mm. No suspicious pulmonary nodules and no significant changes from the prior examination. Mild centrilobular emphysema. No airspace consolidation. Areas of scarring and/or subsegmental atelectasis within the right middle lobe and lingula. PLEURA: No pleural effusion or pneumothorax. HEART/VESSELS: Normal heart size. No pericardial effusion. Mild thoracic aortic calcifications without aneurysm. CORONARY ARTERIES: No coronary artery calcifications. MEDIASTINUM AND JERILYN: No mediastinal lymphadenopathy. CHEST WALL AND LOWER NECK: Within normal limits. UPPER ABDOMEN: Upper abdominal images are degraded by beam hardening artifacts from the low dose technique, without obvious acute process. Several small low-density lesions involve the liver, which are unchanged from the CT abdomen and pelvis study of 01/22/2024. Prior cholecystectomy. Evidence of gastroesophageal reflux with mild fluid in the mid esophageal lumen. BONES: Multilevel spondylosis in the spine. Procedure Note Clifton Leal, DO - 05/11/2024 CT LUNG SCREENING (LDCT BASELINE OR ANNUAL) 05/06/2024 11:33 AM INDICATION: Lung cancer screening, >= 20 pack-year smoking history (Age >= 50y). TECHNIQUE: Axial CT images were obtained though the chest without IV contrast using a low-dose technique. Images were also reviewed using CAD software. CTDlvol of 1.2 mGy and DLP of 39 mGy-cm. The examination was performed with the adjustment of mA according to the patient size and/or the use of Iterative reconstruction technique. LIMITATIONS: Low-dose, noncontrast technique limits evaluation of the solid viscera and mediastinum. COMPARISON: CT chest 03/12/2022. FINDINGS: LUNGS: Scattered small pulmonary nodules are identified. Refer to the [facility] image folder for locations of the nodules. An example nodule is present within the left upper lobe on image 77 measuring 2 mm. No suspicious pulmonary nodules and no significant changes from the prior examination. Mild centrilobular emphysema. No airspace consolidation. Areas of scarring and/or subsegmental atelectasis within the right middle lobe and lingula. PLEURA: No pleural effusion or pneumothorax. HEART/VESSELS: Normal heart size. No pericardial effusion. Mild thoracic aortic calcifications without aneurysm. CORONARY ARTERIES: No coronary artery calcifications. MEDIASTINUM AND JERILYN: No mediastinal lymphadenopathy. CHEST WALL AND LOWER NECK: Within normal limits. UPPER ABDOMEN: Upper abdominal images are degraded by beam hardening artifacts from the low dose technique, without obvious acute process. Several small low-density lesions involve the liver, which are unchanged from the CT abdomen and pelvis study of 01/22/2024. Prior cholecystectomy. Evidence of gastroesophageal reflux with mild fluid in the mid esophageal lumen. BONES: Multilevel spondylosis in the spine. IMPRESSION: 1. Lung-RADS Category 2: Benign. 2. Mild emphysematous changes. 3. Gastroesophageal reflux. RECOMMENDATIONS: 1. Continue annual screening with LDCT in 12 months. DICTATION LOCATION: [address] [place] Pj Shanks MD CT ORDERABLES Final Re sult * MAMMO 3D LEANDRA SCREEN BILAT W OR WO CAD (02/19/2024 10:23 AM CDT) Anatomical Region Laterality Modality Breast Bilateral Mammography 02/19/2024 10:2 4 AM CDT Impressions 02/19/2024 2:03 PM CDT IMPRESSION: 1. No concerning findings. OVERALL FINAL ASSESSMENT: BI-RADS CATEGORY 1 - Negative. RECOMMENDATIONS: 1. Recommend annual mammography. Narrative 02/19/2024 2:03 PM CDT BILATERAL SCREENING DIGITAL MAMMOGRAM WITH 3D TOMOSYNTHESIS AND CAD DATE: 02/19/2024 10:23 AM DICTATION LOCATION: [facility] HISTORY: Routine yearly screening exam. TECHNIQUE: Low-dose full-field digital breast tomosynthesis examination was performed of both breasts with 2D and 3D acquisitions. CAD was utilized. COMPARISON: October 2016 and September 2021. BREAST COMPOSITION: There are scattered areas of fibroglandular density FINDINGS: No concerning dominant masses, suspicious calcifications, parenchymal asymmetries or areas of architectural distortion are identified in either breast. Procedure Note Pranay Morris MD - 02/19/2024 BILATERAL SCREENING DIGITAL MAMMOGRAM WITH 3D TOMOSYNTHESIS AND CAD DATE: 02/19/2024 10:23 AM DICTATION LOCATION: [facility] HISTORY: Routine yearly screening exam. TECHNIQUE: Low-dose full-field digital breast tomosynthesis examination was performed of both breasts with 2D and 3D acquisitions. CAD was utilized. COMPARISON: October 2016 and September 2021. BREAST COMPOSITION: There are scattered areas of fibroglandular density FINDINGS: No concerning dominant masses, suspicious calcifications, parenchymal asymmetries or areas of architectural distortion are identified in either breast. IMPRESSION: 1. No concerning findings. OVERALL FINAL ASSESSMENT: BI-RADS CATEGORY 1 - Negative. RECOMMENDATIONS: 1. Recommend annual mammography. us Ирина Huynh MD MAMMO ORDERABLES Alyson quintana Result * COLONOSCOPY REPORT (02/04/2024 12:57 PM CDT) Narrative Procedure Note Kimani Xavier MD - 02/04/2024 12:57 PM CDT [facility] Endoscopy Patient Name: Bela Valencia Procedure Date: 02/04/2024 Date of : 1960 Age: 63 Attending MD: Kimani Xavier MD, Procedure: Colonoscopy Indications: Hematochezia, Chronic diarrhea Providers: Kimani Xavier MD Referring MD: Ирина Huynh MD Medicines: Monitored Anesthesia Care Procedure: Informed consent was obtained for the procedure, including moderate sedation after risks were discussed. Based on the pre-procedure assessment, including review of the patient's medical history, medications, allergies, and review of systems, the patient was deemed to be an appropriate candidate for sedation. A timeout was performed. Continuous ECG monitoring, pulse oximetry, blood pressure monitoring, and direct observation were performed. The Colonoscope was introduced through the anus and advanced to the terminal ileum. The colonoscopy was performed without difficulty. The patient tolerated the procedure well. The quality of the bowel preparation was good. The terminal ileum, ileocecal valve, appendiceal orifice, and rectum were photographed. Estimated Blood Loss: Estimated blood loss was minimal. Findings: Hemorrhoids were found on perianal exam. Multiple non-bleeding diverticula were found in the sigmoid colon. A 4 mm polyp was found in the rectum. The polyp was sessile. The polyp was removed with a cold snare. Resection and retrieval were complete. One large submucosal nodule was found in the proximal ascending colon. Consistent in appearance with benign lipoma (positive pillow sign). Biopsies were taken with a cold forceps for histology. Biopsies for histology were taken with a cold forceps from the right colon and left colon for evaluation of microscopic colitis. Internal hemorrhoids were found during retroflexion. The hemorrhoids were medium-sized. The terminal ileum appeared normal. Complications: No immediate complications. Impression: - Hemorrhoids found on perianal exam. - Diverticulosis in the sigmoid colon. - One 4 mm polyp in the rectum, removed with a cold snare. Resected and retrieved. - Submucosal nodule in the proximal ascending colon. Likely lipoma. Biopsied. - Internal hemorrhoids. Likely source of patient's hematochezia. - The examined portion of the ileum was normal. - Biopsies were taken with a cold forceps from the right colon and left colon for evaluation of microscopic colitis. Recommendation: - Await pathology results. - Repeat colonoscopy in 5-10 years for surveillance based on pathology results. - Use fiber, for example Citrucel, Fibercon, Konsyl or Metamucil. Kimani Xavier MD 02/04/2024 12:55:10 PM This report has been signed electronically. Number of Addenda: 0 [address] [id number] Kimani Xavier MD GI PROCEDURE ORDERABL ES Final Result from Last 3 Months or Most Recently Relevant to Health Maintenance Insurance [facility] RX A[employer] Medicare Part D RX [employer] (INTERNAL) [facility] [employer] CHOICE POS II Advance Directives For more information, please contact: [phone] * Full Code (Latest Code Status on File) Date Activated Date Inactivated Comments 02/04/2024 11:19 AM 02/04/2024 3:25 PM Care Teams Tube Balancer Relationship Specialty Start Date End Date Joey Odonnell III, MD [address] [place] [address] PCP - General Family Practice 08/14/24
--- OUTSIDE RECORDS SUMMARY | 2025-07-11 11:28 | XMS_ITS | Clinical Summary ---
Author Organization [facility] [employer] Address [address] [place] [address] Care Team Providers Care Safety Person Name Role Phone Frantz Holguin MD Unavailable Olga Lidia Ramírez Primary Care Pr ovider Source Comments [facility],non-owned Affiliates and Associated Physician Practices is amultiple site organization consisting of ambulatory clinics and hospital sitesin [place], [place], [place] and [place]. This disclosure is being madepursuant to the Care Everywhere program and may not contain all information available regarding this patient. Last updated 18.[facility] [employer] Allergies Active Allergy Reactions Criticality Noted Date Comments Budesonide-Formoterol Fumarate Shortness of Breath,Other High 03/10/2019 Symbicort Inhaler Symbicort Inhaler Codeine 11/13/2013 Abd. pain Formoterol Unknown 04/07/2019 Cephalexin Anaphylaxis High 11/13/2013 Levofloxacin Anaphylaxis High 11/13/2013 Asthma attack Morphine Shortness of Breath High 08/10/2014 Asthma attack Nitrofurantoin Other 09/19/2021 Pt is not sure what this medication caused, just know she is allergic to it Penicillins Anaphylaxis High 11/13/2013 Medications * Be aware that medications may not be up to date on this document. Alwaysverify current medications with the patient. hydrocodone-acet aminophen (NORCO) 5-325 MG tablet Take 2 Tabs by mouth every 4 hours as needed for Pain. 30 Tab 0 5 Active Additional Information Patient not taking.Reported on 10/26/2015 albuterol HFA (PROVENTIL;AIDAN JOE;PROAIR) 108 (90 BASE) MCG/ACT inhaler Inhale 2 Puffs by mouth every 6 hours as needed Active hyoscyamine 0.125 MG tablet Take 1 Tab by mouth 4 times daily as needed (ibs) 60 Tab 3 5 Active Additional Information Patient not taking.Reported on 10/26/2015 Naproxen Sodium (ALEVE PO) Active pantoprazole EC (PROTONIX) 40 MG tabletIndication s:Gastroesophage al reflux disease without esophagitis 1 Tab 2 times daily 60 Tab 0 6 Active CARAFATE 1 GM/10ML suspension 8 Active dicyclomine (BENTYL) 20 MG tabletIndication s:Abdominal pain, unspecified abdominal location Take 1 tablet by mouth 4 times daily 120 tablet 1 8 Active rosuvastatin (Crestor) 5 MG tablet 4 Active raNITIdine (Zantac) 300 MG tablet Take 1 (one) tablet by mouth 2 times daily Active pantoprazole EC (Protonix) 40 MG tablet Take 1 (one) tablet by mouth 2 times daily 0 Active Multiple Vitamin (Daily Vites) TABS Take 1 (one) tablet by mouth once daily Active losartan (Cozaar) 25 MG tablet 4 Active lisinopril (Prinivil; Zestril) 10 MG tablet Take 1 (one) tablet by mouth once daily 4 Active fluticasone-elizabeth nterol (Breo Ellipta) 100-25 MCG/ACT inhaler Inhale 1 (one) puff by mouth once daily 9 Active cyclobenzaprine (Flexeril) 5 MG tablet Take 1 (one) tablet by mouth every 8 hours as needed 4 Active cetirizine (ZyrTEC) 10 MG tablet Take 1 (one) tablet by mouth every morning Active Active Problems Problem Noted Date Diagnosed Date HLD (hyperlipidemia) 02/04/2014 Overview (02/04/2014): 10y ASCVD risk 3.6% GERD (gastroesophageal reflux disease) 4 Overview (01/22/2014): Dr Holguin Spondylolisthesis at L5-S1 level 01/22/2014 Overview (01/22/2014): Grade 2 anterolisthesis of L5 on S1 with multilevel lumbar disc disease, worst and moderate at L5-S1 Former smoker 01/22/2014 Overview (09/02/2014): Quit Apr 2014 History of diverticulitis of colon 01/22/2014 Asthma Overview (01/22/2014): adult onset More in cold temps Prediabetes Overview (02/04/2014): a1c 5.7% 10/2013 Dr Leon (last PCP) Immunizations Immunization Administration Dates Next Due INFLUENZA VACCINE 03/15/2014 PNEUMOCOCCAL PPSV23 01/22/2014 TDAP (7yrs+) 09/02/2014 Family History Medical History Relation Name Comments Arthritis - Rheumatoid Brother 3 Arthritis - Rheumatoid Father Cancer Father throat and live r, smoker Stroke Maternal Grandfather Aneurysm Mother Arthritis - Osteo Mother Arthritis - Rheumatoid Mother CAD (Coronary Artery Disease) Mother Heart Failure Mother Hypertension Mother Migraine Mother Stroke Mother Cancer Paternal Grandfather esophag eal Relation Name Status Comments Brother 1 Alive Brother 2 Brother 3 Father (Age 68) Maternal Grandfather Mother (Age 75) Paternal Grandfather Social History Tobacco Use Types Packs/Day Years Used Date Smoking Tobacco: Some Days Cigarettes 0.3 24 Smokeless Tobacco: Never Tobacco Cessation:Ready to Q uit: No; Counseling Given: Yes Alcohol Use Standard Drinks/Week Comments No 0 (1 standard drink = 0.6 oz pur e alcohol) Comments No Sex and Gender Information Value Date Recorded Sex Assigned at Female 06/06/2021 11:41 AM BATCH AND FURNACE MANAGER Legal Sex Female 3:39 PM CDT Gender Identity Not on file Sexual Orientation Not on file Occupation Industry Job Start Date Job End Date UNEMPLOYED Not on file Not on file Not on file Last Filed Vital Signs Vital Sign Reading Time Taken Comments Blood Pressure 173/92 06/03/2021 11:22 AM BATCH AND FURNACE MANAGER Pulse 85 09/17/2023 12:05 PM BATCH AND FURNACE MANAGER Temperature 36.8 C (98.3 F) 06/03/2021 11:22 AM BATCH AND FURNACE MANAGER Respiratory Rate 18 06/03/2021 11:22 AM BATCH AND FURNACE MANAGER Oxygen Saturation 96% 09/17/2023 12:05 PM BATCH AND FURNACE MANAGER Inhaled Oxygen Concentration - - Weight 61.2 kg (135 lb) 09/17/2023 12:05 PM BATCH AND FURNACE MANAGER Height 149.9 cm (4' 11) 09/17/2023 12:05 PM BATCH AND FURNACE MANAGER Body Mass Index 27.27 09/17/2023 12:05 PM BATCH AND FURNACE MANAGER Plan of Treatment Health Maintenance Due Date Last Done Comments BONE DENSITY TESTING 1960 COLOGUARD (AGES 45-75) - COLON CA SCREENING 1960 COLON MONITORING 1960 COLONOSCOPY - COLON CA SCREENING 1960 CT COLONOGRAPHY - COLON CA SCREENING 1960 Colorectal Cancer Screening 1960 FIT - COLON CA SCREENING 1960 FLEX SIG - COLON CA SCREENING 1960 HIV SCREENING 1975 Respiratory Syncytial Virus (RSV) Vaccine Pt: or over 60 yrs (1 - Risk 50-74 years 1-dose series) 2010 ZOSTER VACCINE (1 of 2) 2010 PNEUMOCOCCAL VACCINE 50+ (2 of 2 - PCV) 01/22/2015 01/22/2014 SCREENING FOR DIABETES 09/17/2023 09/03/2014, 2013 MAMMOGRAM 10/10/2023 10/09/2021, 09/13, 09/02/2014 DEPRESSION SCREENING 07/15/2024 MEDICARE AWV CALENDAR YEAR 2024 DTAP/TDAP/TD VACCINES (2 - Td or Tdap) 09/02/2024 09/02/2014 COVID-19 VACCINE (2 - season) 2025 03/25/2021 INFLUENZA VACCINE (#1) 2025 3, 04/15/2022, 04/29/2021, Additional history exists HEPATITIS C SCREENING Completed 09/03/2014 HEPATITIS B VACCINE Aged Out No longe r eligible based on patient's age to complete this topic HIB VACCINE Aged Out No longer eligi ble based on patient's age to complete this topic HPV VACCINE Aged Out No longer eligi ble based on patient's age to complete this topic MENINGOCOCCAL (Group B) VACCINE SHARED DECISION-MAKING Aged Out No longer eligible based on patient's age to complete this topic MENINGOCOCCAL GROUPS A/C/Y/W VACCINE Aged Out No longer eligible based on patient's age to complete this topic Goals Goal Patient Goal Type Associated Problems Recent Progress Patient-Stated? Author Quit smoking / using tobacco Lifestyle On track(09/02/19 15 10:10 AM BATCH AND FURNACE MANAGER) No Kavita Honeycutt MA Procedures Procedure Name Priority Date/Time Associated Diagnosis Comments COMPREHENSIVE METABOLIC PANEL Routine 09/03/2014 8:37 AM BATCH AND FURNACE MANAGER Hot flashes HEPATITIS C ANTIBODY Routine 09/03/2014 8:37 AM BATCH AND FURNACE MANAGER Need for hepatitis C screening test MAMMO BILAT SCREENING Routine 09/02/2014 11:44 AM BATCH AND FURNACE MANAGER Other screening mammogram from Last 3 Months or Most Recently Relevant to Health Maintenance Results * COMPREHENSIVE METABOLIC PANEL (09/03/2014 8:37 AM BATCH AND FURNACE MANAGER) Glucose 74 65 - 99 mg/dL [facility] Comment: Fasting reference interval BUN 16 7 - 25 mg/dL [facility] Creatinine 0.94 0.50 - 1.05 mg/dL [facility] Comment: For patients >49 years of age, the reference limit for Creatinine is approximately 13% higher for people identified as -Vietnamese. eGFR by MDRD 69 > OR = 60 mL/min/1 .73m2 [facility] eGFR by MDRD 80 > OR = 60 mL/min/1 .73m2 [facility] BUN/Creatinine Ratio NOT APPLICABLE 6 - 22 (calc) [facility] Sodium 140 135 - 146 mmol/L [facility] Potassium 4.2 3.5 - 5.3 mmol/L [facility] Chloride 105 98 - 110 mmol/L [facility] CO2 26 19 - 30 mmol/L [facility] Calcium 9.7 8.6 - 10.4 mg/dL [facility] Protein Total 6.5 6.1 - 8.1 g/dL [facility] Albumin 4.3 3.6 - 5.1 g/dL [facility] Globulin Total 2.2 1.9 - 3.7 g/dL (calc) [facility] Albumin/Globulin Ratio 2.0 1.0 - 2.5 (calc) [facility] Bilirubin Total 0.4 0.2 - 1.2 mg/dL [facility] Alkaline Phosphatase 79 33 - 130 U/L [facility] AST 21 10 - 35 U/L [facility] ALT 16 6 - 29 U/L [facility] Comment: Test Performed at: [facility] [place] [address] RAJESH GRAMAJO DO,MPH Blood specimen (specimen) BLOOD SPECIMEN / Unknown 09/03/2014 8:37 AM BATCH AND FURNACE MANAGER 09/03/2014 8:37 AM BATCH AND FURNACE MANAGER Rosana Cheatham MD LAB - CHEMISTRY ORDERABLES Final Result Performing Organization Address [facility] de Phone Number [facility] [address] [place] [address] * HEPATITIS C ANTIBODY (09/03/2014 8:37 AM BATCH AND FURNACE MANAGER) Hepatitis C Antibody NON-REACTI VE NON-REACT CHARLENE [facility] Signal to Cut-Off 0.01 <1.00 [facility] Comment: Test Performed at: [id number] [address] [address] RAJESH GRAMAJO DO,MPH Blood specimen (specimen) BLOOD SPECIMEN / Unknown 09/03/2014 8:37 AM BATCH AND FURNACE MANAGER 09/03/2014 8:37 AM BATCH AND FURNACE MANAGER Result [facility] Rosana Cheatham MD LAB - CHEMISTRY ORDERABLES Final Result Performing Organization Address [facility] de Phone Number [facility] [address] [place] [address] * MAMMO SCREENING DIGITAL IMAGE BILAT (09/02/2014 11:44 AM BATCH AND FURNACE MANAGER) Anatomical Region Laterality Modality Breast Bilateral Mammography 09/02/2014 1:24 PM BATCH AND FURNACE MANAGER Narrative 09/02/2014 1:26 PM BATCH AND FURNACE MANAGER EXAMINATION: Digital screening mammogram on 09/02/14. PRIOR: This is a baseline FINDINGS: Computer assisted detection was utilized. Tissue is fatty. Risk assessment calculation: Based on the information provided by your patient, her lifetime risk of breast cancer is average (calculated at 10% by the BRCAPRO model, zero% by the Julius model, 12% by the Naima model, and 4% by the Tyrer-Cuzick model). Please note this information is only as accurate as the data entered by the patient. ASSESSMENT:BIRADS 1 : Negative RECOMMENDATION: Screening mammogram in one year. Thank you for allowing us to participate in the care of your patient. [facility] utilizes [employer] as a reminder system to notify patients of their next recommended mammogram. us Rosana Cheatham MD MAMMO ORDERABLES Final Result from Last 3 Months or Most Recently Relevant to Health Maintenance Insurance AETNA MEDICARE ADV [facility] Care Teams Safety Person Relationship Specialty Start Date End Date Olga Lidia Ramírez PA [address] [place] [address] PCP - General Physician Fisher Terrapin 10/26/15 Frantz Holguin MD [address] [place] [id number] Gastroenterology 01/22/14
--- OUTSIDE RECORDS SUMMARY | 2025-07-11 11:28 | XMS_ITS | Encounter Summary ---
Author Organization [facility] Healthcare Address [address] [place] [address] Care Team Providers Care Deputy Court Clerk Name Role Phone Olga Lidia Hardy Primary Care Pr ovider Ora Owens MD Primary Care Provid er Pj Shanks MD Unavailable [phone] Encounter Details Date Type Department Care Team (Late st Contact Info) Description 11/06/2017 Orders Only [facility] [place] [address] [place] [id number] Scanning, Provider Social History Tobacco Use Types Packs/Day Years Used Date Smoking Tobacco: Never Assessed Comments Unknown Sex and Gender Information Value Date Recorded Sex Assigned at Not on file Legal Sex Female 2:09 PM CDT Gender Identity Not on file Sexual Orientation Not on file documented as of this encounter Plan of Treatment Not on file documented as of this encounter Procedures Procedure Name Priority Date/Time Associated Diagnosis Comments CARDIOLOGY DOCUMENT SCAN 11/06/2017 documented in this encounter Results * Cardiology Document Scan (11/06/2017) Anatomical Region Laterality Modality Other us Provider Scanning CV CARDIAC SERVICES PROCEDURES Final Result documented in this encounter Visit Diagnoses Not on filedocumented in this encounter Care Teams Deputy Court Clerk Relationship Specialty Start Date End Date Olga Lidia Hardy PA PCP - General Physician Director Child Development Center 11/06/17 11/05/23 Ora Owens MD [address] [place] [address] PCP - General Family Medicine 11/06/23 Pj Shanks MD [address] [place] [address] Referring Physician Internal Medicine 11/06/23 documented as of this encounter
--- OUTSIDE RECORDS SUMMARY | 2025-07-11 11:28 | XMS_ITS | Clinical Summary ---
Author Organization [facility] Address [address] [place] [address] Phone Care Team Providers Care Senior Design Engineering Specialist Name Role Phone Nain Bahena MD, Prince Knight Primary Care Provider [phone] Allergies Active Allergy Reactions Criticality Noted Date Comments Cephalexin Anaphylaxis High 10/19/2011 Codeine Anaphylaxis High 10/19/2011 Penicillins Anaphylaxis High 10/19/2011 Medications ranitidine (ZANTAC) 300 mg Oral tablet Take 300 mg by mouth 2 times daily. Active multivitamin (DAILY-DON) Oral tablet Take 1 Tab by mouth daily. Active ASPIRIN/ACETAMIN OPHEN/CAFFEINE (EXCEDRIN EXTRA STRENGTH ORAL) Take by mouth. Active Social History Tobacco Use Types Packs/Day Years Used Date Smoking Tobacco: Every Day Cigarettes Alcohol Use Standard Drinks/Week Comments No 0 (1 standard drink = 0.6 oz pur e alcohol) Comments Unknown Sex and Gender Information Value Date Recorded Sex Assigned at Not on file Legal Sex Female 1:20 PM AVIAN KEEPER Gender Identity Not on file Sexual Orientation Not on file Last Filed Vital Signs Vital Sign Reading Time Taken Comments Blood Pressure 113/70 10/19/2011 4:30 PM CDT Pulse 78 10/19/2011 4:30 PM CDT Temperature 36.5 C (97.7 F) 10/19/2011 1:15 PM CDT Respiratory Rate 14 10/19/2011 4:30 PM CDT Oxygen Saturation 98% 10/19/2011 4:30 PM CDT Inhaled Oxygen Concentration - - Weight 59 kg (130 lb) 10/19/2011 1:15 PM CDT Height 149.9 cm (4' 11) 10/19/2011 1:15 PM CDT Body Mass Index 26.26 10/19/2011 1:15 PM CDT Plan of Treatment Health Maintenance Due Date Last Done Comments DTAP/TDAP/TD VACCINES (1 - Tdap) 1979 BREAST CANCER SCREENING 2000 COLORECTAL SCREENING 2005 Colorectal Cancer Screening 2005 FIT-DNA Q 3 years 2005 FIT/FOBT Q 1 year 2005 Flex Sig/CT Colonography Q 5 years 2005 PNEUMOCOCCAL VACCINE 50+ YEARS (1 of 1 - PCV) 04/02/20 10 ZOSTER VACCINE (1 of 2) 2010 INFLUENZA VACCINE (#1) 2025 OSTEOPOROSIS SCREENING 2025 RSV VACCINE (60+ or ) (1 - 1-dose 75+ series) 2035 Care Teams Senior Design Engineering Specialist Relationship Specialty Start Date End Date Prince Gillette Jr., MD PCP - General Family Practice 10/19/11
--- NOTE | 2025-07-11 11:29 | ECG_ITS ---
Test Date: 2025-07-11 12:10:09 Measurements Intervals Winger Rate: 66 P: 38 WY: 124 QRS: 54 QRSD: 84 T: 35 QT: 402 QTc: 424 Interpretive Statements SINUS RHYTHM NORMAL ECG No previous ECG available for comparison Electronically Signed On 07-11-2025 20:16:58 MANAGER DIVERSITY by Elder Ayala D.O.
[2025-07-11 11:43] VITALS: BP 160/92; PULSE 71; PULSE 76; RESP 14; TEMP 36.7; O2SAT 99
[2025-07-11 11:43] LABS: Hematocrit 44.1 % (37.0-47.0); Hemoglobin 14.6 g/dL (12.0-15.0); Immature Granulocyte Percent A 0.2 % (0-0.5); Lymphocytes Absolute Auto 3.47 K/mm3 (0.9-3.2); Mean Corpuscular HGB Conc 33.1 g/dl (32-36); Mean Corpuscular Hemoglobin 30.6 pg (26-34); Mean Corpuscular Volume 92.5 fl (80-100); Nucleated Red Blood Cells Absolute Auto 0.000 K/mm3 (0.0-0.012); Nucleated Red Blood Cells Perc 0.0 % (0.0-0.2); Platelet Count Result 266 k/mm3 (150-375); Red Blood Count 4.77 M/mm3 (4.2-5.4); White Blood Count 9.8 K/mm3 (4.5-10.0)
[2025-07-11 11:54] LABS: INR 1.0; Prothrombin Time 13.6 Seconds (11.1-14.7)
[2025-07-11 11:55] LABS: Partial Thromboplastin Time 30.0 Seconds (22.3-36.8)
[2025-07-11 11:58] LABS: Alanine Aminotransferase 19 U/L (6-35); Albumin Level 4.7 g/dL (3.5-5.1); Alkaline Phosphatase 99 U/L (38-126); Anion Gap 6 mmol/L (4-12); Aspartate Amino Transferase 36 U/L (14-36); Bilirubin,Total 0.5 mg/dL (0.2-1.3); Blood Urea Nitrogen 16 mg/dL (7-17); Calcium 9.9 mg/dL (8.4-10.2); Carbon Dioxide 26 mmol/L (22-30); Chloride 108 mmol/L (98-107); Estimated Glomerular Filt Rate > 60; Glucose 98 mg/dL (65-110); Potassium 4.2 mmol/L (3.4-5.0); Sodium 140 mmol/L (137-145); Total Protein 7.6 g/dL (6.3-8.2)
--- OUTSIDE RECORDS SUMMARY | 2025-07-11 12:02 | XMS_ITS | Clinical Summary ---
Author Organization [facility] Address [address] [place] [address] Attn: Epic Prelude ADT JODIE SCRUGGS [address] Care Team Providers Care Bridge Rigger Name Role Phone Blas ESPINO MD, Joey [...] (08/10/2021): Added automatically from request for surgery [id number] De Quervain's syndrome (tenosynovitis) 9 Overview (08/10/2021): Added automatically from request for surgery [id number] Anterior chest wall pain 03/10/2019 Asthma 03/10/2019 [...] COVID-19 VACCINE - EMERGENCY USE AUTHORIZATION, MRNA, [id number](PF) 30 MCG/0.3 ML IM SUSP 03/25/2021 (PNEUMOVAX [...] PM CDT Legal Sex Female 12:04 AM FOREIGN LANGUAGES PROFESSOR Gender Identity Not on file Sexual Orientation [...] 02/03/2034 Colorectal Cancer Screening 02/03/2034 Medicare Ad[place]age ([place]) Preventative Visit/Annual Wellness Visit Completed 08/14/2024 Procedures Procedure Name Priority Date/Time Associated Diagnosis Comments HEMOGLOBIN A1C Routine 08/14/2024 11:32 AM FOREIGN LANGUAGES PROFESSOR Screening for diabetes mellitus CT LUNG SCREENING [...] * (ABNORMAL) HEMOGLOBIN A1C (08/14/2024 11:32 AM FOREIGN LANGUAGES PROFESSOR) HEMOGLOBIN A1C 5.8(H) <5.7 % of total Hgb [employer]Brandon Morrison Comment: For someone without known diabetes, [...] children. ESTIMATED AVERAGE GLUCOSE (MG/DL) 120 mg/dL [employer] Loretta Morrison ESTIMATED AVERAGE GLUCOSE (MMOL/L) 6.6 mmol/L [employer]Brandon Morrison Comment: Test Performed at: [facility] [address] [place] [address] Srinivas Sims Blood 08/14/2024 11:3 2 AM FOREIGN LANGUAGES PROFESSOR 08/14/2024 3:00 PM FOREIGN LANGUAGES PROFESSOR us Ирина Huynh MD CHEMISTRY ORDERABLES Final Result [facility] [phone] [facility] [address] [place] [address] * CT LUNG SCREENING (LDCT BASELINE OR ANNUAL) (05/06/2024 11:33 AM CDT) Anatomical Region Laterality Modality Chest Computed Tomogra phy 05/06/2024 11:2 2 AM CDT Impressions 05/11/2024 6:12 PM CDT IMPRESSION: 1. Lung-RADS Category 2: Benign. 2. Mild emphysematous changes. 3. Gastroesophageal reflux. RECOMMENDATIONS: 1. Continue annual screening with LDCT in 12 months. DICTATION LOCATION: Location [address] [place] [address] Narrative 05/11/2024 6:[address] LUNG [...] with LDCT in 12 months. DICTATION LOCATION: [address] us Pj Shanks MD CT ORDERABLES [...] CAD DATE: 02/19/2024 10:23 AM DICTATION LOCATION: [facility] HISTORY: Routine yearly screening exam. TECHNIQUE: [...] CAD DATE: 02/19/2024 10:23 AM DICTATION LOCATION: [facility] HISTORY: Routine yearly screening exam. TECHNIQUE: [...] Xavier MD - 02/04/2024 12:57 PM CDT [facility] Endoscopy Patient Name: Bela Valencia Procedure Date: [...] signed electronically. Number of Addenda: [phone] [id number] Kimani Xavier MD GI PROCEDURE ORDERABL ES Final Result from Last 3 Months or Most Recently Relevant to Health Maintenance Insurance [facility] [place]: [facility] [address] [place] [address] RX AETNA Medicare Part D RX [employer] (INTERNAL) [facility] AETNA CHOICE POS II Advance Directives For more information, please contact: [phone] * Full Code (Latest Code Status on File) Date Activated Date Inactivated Comments 02/04/2024 11:19 AM 02/04/2024 3:25 PM Care Teams Bridge Rigger Relationship Specialty Start Date End Date Joey Odonnell III, MD [address] [place] [address] PCP - General Family Practice 08/14/24
--- OUTSIDE RECORDS SUMMARY | 2025-07-11 12:02 | XMS_ITS | Encounter Summary ---
Author Organization [facility] Healthcare Address [address] [place] [address] Care Team Providers Care Assembler Metal Building Name Role Phone Olga Lidia Hardy Primary Care Pr ovider Ora Owens MD Primary Care Provid er Pj Shanks MD Unavailable [phone] Encounter Details Date Type Department Care Team (Late st Contact Info) Description 11/06/2017 Orders Only [facility] Health Information Management [address] [place] [address] Scanning, Provider Social History Tobacco Use [...] on filedocumented in this encounter Care Teams Assembler Metal Building Relationship Specialty Start Date End Date Olga Lidia Hardy PA PCP - General Physician Novelty Candy Maker 11/06/17 11/05/23 Ora Owens MD [address] [place] [address] PCP - General Family Medicine 11/06/23 Pj Shanks MD [address] [place] [address] Referring Physician Internal Medicine 11/06/23 documented as of this encounter
--- OUTSIDE RECORDS SUMMARY | 2025-07-11 12:02 | XMS_ITS | Clinical Summary ---
Author Organization [facility] Address [address] [place] [address] Phone Care Team Providers Care Avionics Manager Name Role Phone Nain Bahena MD, Prince Knight Primary Care Provider [phone] Allergies Active Allergy Reactions Criticality Noted Date [...] on file Legal Sex Female 1:20 PM ROTOR PILOT Gender Identity Not on file Sexual Orientation [...] - 1-dose 75+ series) 2035 Care Teams Avionics Manager Relationship Specialty Start Date End Date Prince Gillette Jr., MD PCP - General Family Practice 10/19/11
--- OUTSIDE RECORDS SUMMARY | 2025-07-11 12:02 | XMS_ITS | Clinical Summary ---
Author Organization [facility] Address [address] [place] [address] Care Team Providers Care Raw Silk Grader Name Role Phone Frantz Holguin MD Unavailable Olga Lidia Ramírez Primary Care Pr ovider Source Comments [facility],non-owned Affiliates and Associated Physician Practices is amultiple site organization consisting of ambulatory clinics and hospital sitesin [place], [place], [place] and [place]. This disclosure is being madepursuant to the Care Everywhere program and may not contain all information available regarding this patient. Last updated 18.[facility] Allergies Active Allergy Reactions Criticality Noted Date [...] Sex Assigned at Female 06/06/2021 11:41 AM SUPERVISOR RIDES Legal Sex Female 3:39 PM CDT Gender Identity Not on file Sexual Orientation Not on file Occupation Industry Job Start Date Job End Date UNEMPLOYED Not on file Not on file Not on file Last Filed Vital Signs Vital Sign Reading Time Taken Comments Blood Pressure 173/92 06/03/2021 11:22 AM SUPERVISOR RIDES Pulse 85 09/17/2023 12:05 PM SUPERVISOR RIDES Temperature 36.8 C (98.3 F) 06/03/2021 11:22 AM SUPERVISOR RIDES Respiratory Rate 18 06/03/2021 11:22 AM SUPERVISOR RIDES Oxygen Saturation 96% 09/17/2023 12:05 PM SUPERVISOR RIDES Inhaled Oxygen Concentration - - Weight 61.2 kg (135 lb) 09/17/2023 12:05 PM SUPERVISOR RIDES Height 149.9 cm (4' 11) 09/17/2023 12:05 PM SUPERVISOR RIDES Body Mass Index 27.27 09/17/2023 12:05 PM SUPERVISOR RIDES Plan of Treatment Health Maintenance Due Date [...] tobacco Lifestyle On track(09/02/19 15 10:10 AM SUPERVISOR RIDES) No Kavita Honeycutt MA Procedures Procedure Name Priority Date/Time Associated Diagnosis Comments COMPREHENSIVE METABOLIC PANEL Routine 09/03/2014 8:37 AM SUPERVISOR RIDES Hot flashes HEPATITIS C ANTIBODY Routine 09/03/2014 8:37 AM SUPERVISOR RIDES Need for hepatitis C screening test MAMMO BILAT SCREENING Routine 09/02/2014 11:44 AM SUPERVISOR RIDES Other screening mammogram from Last 3 Months or Most Recently Relevant to Health Maintenance Results * COMPREHENSIVE METABOLIC PANEL (09/03/2014 8:37 AM SUPERVISOR RIDES) Glucose 74 65 - 99 mg/dL [facility] Comment: Fasting reference interval BUN 16 7 - 25 mg/dL [facility] Creatinine 0.94 0.50 - 1.05 mg/dL [facility] Comment: For patients >49 years of age, the reference limit for Creatinine is approximately 13% higher for people identified as -Prydeinig. eGFR by MDRD 69 > OR = [...] 29 U/L [facility] Comment: [facility]: [facility] [place] [address] RAJESH GRAMAJO DO,MPH Blood specimen (specimen) BLOOD SPECIMEN / Unknown 09/03/2014 8:37 AM SUPERVISOR RIDES 09/03/2014 8:37 AM SUPERVISOR RIDES Rosana Cheatham MD LAB - CHEMISTRY ORDERABLES Final Result Performing Organization Address [facility] de Phone Number [facility] [address] [place] [address] * HEPATITIS C ANTIBODY (09/03/2014 8:37 AM SUPERVISOR RIDES) Hepatitis C Antibody NON-REACTI VE NON-REACT CHARLENE [facility] Signal to Cut-Off 0.01 <1.00 [facility] Comment: Test Performed at: [facility] [address] [address] RAJESH GRAMAJO DO,MPH Blood specimen (specimen) BLOOD SPECIMEN / Unknown 09/03/2014 8:37 AM SUPERVISOR RIDES 09/03/2014 8:37 AM SUPERVISOR RIDES Result [facility] Rosana Cheatham MD LAB - CHEMISTRY ORDERABLES Final Result Performing Organization Address [facility] de Phone Number [facility] [address] [place] [address] * MAMMO SCREENING DIGITAL IMAGE BILAT (09/02/2014 11:44 AM SUPERVISOR RIDES) Anatomical Region Laterality Modality Breast Bilateral Mammography 09/02/2014 1:24 PM SUPERVISOR RIDES Narrative 09/02/2014 1:26 PM SUPERVISOR RIDES EXAMINATION: Digital screening mammogram on 09/02/14. PRIOR: [...] participate in the care of your patient. [facility] utilizes [employer] as a reminder system to notify patients of their next recommended mammogram. us Rosana Cheatham MD MAMMO ORDERABLES Final Result from Last 3 Months or Most Recently Relevant to Health Maintenance Insurance [employer] MEDICARE ADV [facility] Care Teams Raw Silk Grader Relationship Specialty Start Date End Date Olga Lidia Ramírez PA [address] [place] [address] PCP - General Physician Hull Grinder 10/26/15 Frantz Holguin MD [address] [place] [id number] Gastroenterology 01/22/14
[2025-07-11 12:07] LABS: Troponin I < 0.012 ng/mL (0.000-0.034)
[2025-07-11 12:45] VITALS: BP 157/79; PULSE 66; RESP 19; O2SAT 97
[2025-07-11 13:30] VITALS: BP 146/76; PULSE 66; RESP 16; O2SAT 93
--- NOTE | 2025-07-11 14:43 | ED_ITS ---
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 She had blurring vision in the peripheral vision lasting approximately 30 minutes beginning at 10:30 a.m.. No slurred speech. No facial droop. No word-finding difficulty. She has mild discomfort behind her neck and head. Remote history of migraine headache. Denies any other issues. Symptoms resolved on arrival. Related Data Home Medications ?Medication ?Instructions ?Recorded ?Confirmed ?Last Taken ?Type albuterol sulfate 90 mcg/actuation 1 inh inhalation Q4 H 05/27/25 05/27/25 Unknown History aerosol inhaler (Ventolin HFA) Allergies Allergy/AdvReac Type Severity Reaction Status Date / Time Penicillins Allergy Severe Swelling Verified 05/27/25 12:47 of Lip/Tongue/Throat cephalexin Allergy Intermediate Swelling Verified 05/27/25 12:47 of Lip/Tongue/Throat codeine Allergy Unknown Difficulty Verified 05/27/25 12:47 Breathing levofloxacin Allergy Unknown Difficulty Verified 05/27/25 12:47 Breathing morphine Allergy Unknown Difficulty Verified 05/27/25 12:47 Breathing budesonide (From Symbicort) Allergy Difficulty Verified 05/27/25 12:47 Breathing formoterol (From Symbicort) Allergy Difficulty Verified 05/27/25 12:47 Breathing Review of Systems 2 Review of Systems: All systems reviewed & are unremarkable except as noted in HPI and below Constitutional: Constitutional: Reports no additional constitutional complaints ENT: Reports system reviewed and no additional complaints, except as documented Cardiovascular: Cardiovascular: Reports no additional cardiovascular complaints Respiratory: Respiratory: Reports no additional respiratory complaints Gastrointestinal: Gastrointestinal: Reports no additional gastrointestinal complaints Neurologic: Reports system reviewed and no additional complaints, except as documented [facility] Past Medical History Medical History (Updated 07/11/25 @ 15:39 by Darrick Rowley MD) Pre-diabetes Back pain Arthritis Surgical History Surgical History Hx of cholecystectomy Hx of appendectomy H/O: hysterectomy Hx of cardiac cath Family History Family History Father Esophageal cancer Mother Hypertension Heart disease Grandparent Cerebrovascular accident Social History Social History Smoking packs per day: 0.25 Smoking cigarettes per day: 5.0 Smoking status: Current every day smoker Lack of Transportation: No Lack of Food: Never True Current Housing: I Have Housing Concerned About Future Housing: No Difficulty Paying Gas/Electric Bills: No Difficulty Paying for Meds: No Currently Unemployed: No Education: High School Diploma/GED Difficulty w/ Childcare or Family Care: No Exam 2 Narrative: GENERAL: Well-appearing, well-nourished, and in no acute distress. HEAD: Normocephalic, atraumatic. EYES: PERRLA and EOMI. Visual ospina intact. ENT: Mucous membranes moist. CHEST: Clear to auscultation. No respiratory distress. HEART: Regular rate and rhythm. Normal peripheral pulses. ABDOMEN: Soft, nontender, nondistended. EXTREMITIES: Normal range of motion. No edema. SKIN: Warm, dry, no rash. NEURO: No focal deficits. NIH stroke scale 0. Alert and oriented x3. PSYCH: Normal mood and affect. Course Course Emergency Course: Patient resting comfortably. Informed of results. No focal deficits here. No new visual changes. Patient does report that she had about 10 minutes of frontal headache rash who is here with a is since resolved. Symptoms seem most consistent with migraine headache. Discussed with Dr. Watts, maciejay with obs but can also see in clinic. Patient prefers to go home. Vital Signs Vital signs: Vital Signs Temperature 98.1 F 07/11/25 11:43 Pulse Rate 76 07/11/25 11:43 Respiratory Rate 14 07/11/25 11:43 Blood Pressure 160/92 H 07/11/25 11:43 Pulse Oximetry 99 07/11/25 11:43 Oxygen Delivery Room Air 07/11/25 11:43 Temperature 98.1 F 07/11/25 11:43 Pulse Rate 67 07/11/25 15:00 Respiratory Rate 18 07/11/25 15:00 Blood Pressure 137/84 07/11/25 15:00 Pulse Oximetry 96 07/11/25 15:00 Oxygen Delivery Room Air 07/11/25 11:43 MDM Differential Diagnosis Differential Diagnosis: Migraine, TIA, CVA, intracranial hemorrhage, electrolyte imbalance Lab Data [facility] Lab Attestation statement: I personally reviewed the patient's lab results. 07/11/25 11:37 07/11/25 11:37 Labs: Lab Results 07/11/25 07/11/25 Range/Units 11:29 11:37 WBC 9.8 (4.5-10.0) K/mm3 RBC 4.77 (4.2-5.4) M/mm3 Hgb 14.6 (12.0-15.0) g/dL Hct 44.1 (37.0-47.0) % MCV 92.5 (80-100) fl MCH 30.6 (26-34) pg MCHC 33.1 (32-36) g/dl RDW 12.8 (11.5-14.5) % Plt Count 266 (150-375) k/mm3 MPV 9.2 (7.4-10.4) fl Immature Gran % (Auto) 0.2 (0-0.5) % Neut % (Auto) 56.4 (45.5-73.1) % Lymph % (Auto) 35.3 (18.3-44.2) % Canyon % (Auto) 6.2 (2.6-8.5) % Eos % (Auto) 1.3 (0-4.4) % Baso % (Auto) 0.6 (0.2-1.2) % Lymph # (Auto) 3.47 H (0.9-3.2) K/mm3 Canyon # (Auto) 0.6 (0.1-0.6) K/mm3 Eos # (Auto) 0.1 (0-0.3) K/mm3 Baso # (Auto) 0.1 (0.0-0.1) K/mm3 Abs Immat Gran (auto) 0.02 (0.00-0.031) K/mm3 Absolute Neuts (auto) 5.6 (1.3-6.7) K/mm3 Absolute Nucleated RBC 0.000 (0.0-0.012) K/mm3 Nucleated RBC % 0.0 (0.0-0.2) % PT 13.6 (11.1-14.7) Seconds INR 1.0 APTT 30.0 (22.3-36.8) Seconds Sodium 140 (137-145) mmol/L Potassium 4.2 (3.4-5.0) mmol/L Chloride 108 H (98-107) mmol/L Carbon Dioxide 26 (22-30) mmol/L Anion Gap 6 (4-12) mmol/L BUN 16 (7-17) mg/dL Creatinine 0.87 (0.7-1.0) mg/dL Estim Creat Clear Calc Not Reportable Estimated GFR > 60 (59 - ) Glucose 98 (65-110) mg/dL POC Capillary Glucose 93 (65-105) mg/dl Calcium 9.9 (8.4-10.2) mg/dL Total Bilirubin 0.5 (0.2-1.3) mg/dL AST 36 (14-36) U/L ALT 19 (6-35) U/L Alkaline Phosphatase 99 (38-126) U/L Troponin I < 0.012 (0.000-0.034) ng/mL Total Protein 7.6 (6.3-8.2) g/dL Albumin 4.7 (3.5-5.1) g/dL Imaging Data Radiologist's impression: ITS Impressions Head CT 07/11/25 11:44 IMPRESSION: 1. No acute intracranial findings. Chest X-Ray 07/11/25 12:16 IMPRESSION: 1. No acute cardiopulmonary findings given portable technique. Head/Neck CTA 07/11/25 13:05 IMPRESSION: CTA NECK: 1. No acute findings. CTA HEAD: 1. No acute findings. ECG Data EKG #1: Attestation: I personally reviewed and interpreted this ECG as follows: ECG completion date: 07/11/25 ECG completion time: 12:10 normal rate (66), sinus rhythm, no ST changes, normal QRS, normal QT and NL axis Discharge Plan Discharge Clinical Impression: Visual aura Patient Disposition: Home Condition: Stable Instructions: Migraine Headache (ED) Additional Instructions: Try to stay well hydrated at home. Please return to the emergency department if you develop worsening of your headache or a new headache which is severe, associated with vision changes, associated with neck stiffness or fever, or if it is different from any other headache that you have had before. Return to the emergency department if you develop numbness, weakness or tingling or problems with coordination, or if you develop severe nausea and vomiting and are unable to keep down fluids at home. Patient Language: Filipino Prescriptions: No Action Breo Ellipta 200-25 mcg/dose blister with device 1 ea INHALATION DAILY Qty: 60 5RF pantoprazole 40 mg tablet,delayed release (DR/EC) 40 mg PO HS Qty: 30 5RF albuterol sulfate [Ventolin HFA] 90 mcg/actuation HFA aerosol inhaler 1 inh inhalation Q4H Follow-up/Referrals: Diallo Watts MD [Physician, Neurology] - 1 Week Camryn Ortiz APRN [[facility] Care Provider[facility]] Quality Stroke Scale Stroke Scale 1: Stroke scale date:: 07/11/25 Stroke scale time:: 11:30 1a Level of consciousness: alert-0 1b Level of consciousness questions: answers both correctly-0 1c Level of consciousness commands: obeys both correctly-0 2 Best gaze: normal-0 3 Visual: no visual loss-0 4 Facial palsy: normal-0 5a Motor: left arm: no drift-0 5b Motor: right arm: no drift-0 6a Motor: left leg: no drift-0 6b Motor: right leg: no drift-0 7 Limb ataxia: absent-0 8 Sensory: normal-0 9 Best language: no aphasia-0 10 Dysarthria: normal-0 11 Extinction and inattention: no abnormality-0 Level:: 0
[2025-07-11 15:00] VITALS: BP 137/84; PULSE 67; RESP 18; O2SAT 96
== END 2025-07-11 15:50 | disposition home or self-care (01) ==
PROVIDERS: Emergency Provider Emergency Medicine; PCP Nurse Practitioner Family
DX: G43.109 Migraine with aura, not intractable, without status migrainosus (principal); R73.03 Prediabetes; F17.210 Nicotine dependence, cigarettes, uncomplicated
CPT/HCPCS: 36415; 70450; 70496; 70498; 71045; 80053; 82948; 84484; 85025; 85610; 85730; 93005; 99284; Q9967